=== PATIENT | male | born 1945 | race African-American/Black ===

== ENCOUNTER 2016-05-16 13:36 | Inpatient (IN) | payer OTHER, MEDICARE ==
[~2016-05-16] VITALS: Ht 188 cm; Wt 67.3 kg
[2016-05-16] VITALS (15 sets, daily range): BP systolic 74–136; BP diastolic 39–80; PULSE 65–96; RESP 16–20; TEMP 97.6–99; O2SAT 94–100
[~2016-05-16 13:36] MED LIST: APIX5TAB PO; CORD200T PO; chemotherapy IV
[2016-05-16] MEDS ORDERED: ADENOSINE IV SOLN 3 MG/ML 2 ML VIAL ONE (14:08)
[2016-05-16] MEDS ORDERED: SODIUM CHLOR 0.9% 1000 ML INJ 1,000 ML IV SCH (14:21)
[2016-05-16 14:22] LABS: MEAN CORPUSCULAR HGB CONC 29.4 % (32.0-36.0)
[2016-05-16] MEDS ORDERED: SODIUM CHLORIDE 0.9% FLUSH 5 ML FLUSH IVF PRN (14:30)
[2016-05-16] MEDS ORDERED: AMIO200T PO (14:54)
--- NOTE | 2016-05-16 15:11 | RADRPT ---
EXAM DATE/TIME: 05/16/2016 14:45 [facility] COMPARISON: CT BRAIN W/O CONTRAST, December 27, 2015, 10:59. INDICATIONS : Generalized weakness. RADIATION DOSE: 56.35 CTDIvol (mGy) MEDICAL HISTORY : Cardiovascular disease. Hypertension. Renal cancer SURGICAL HISTORY : Nephrectomy, left. ENCOUNTER: Initial ACUITY: 1 day PAIN SCALE: 0/10 LOCATION: cranial TECHNIQUE: Multiple contiguous axial images were obtained of the head. Using automated exposure control and adj ustment of the mA and/or kV according to patient size, radiation dose was kept as low as reasonably a chievable to obtain optimal diagnostic quality images. FINDINGS: There is marked central and cortical atrophy with dilatation of ventricular and sulcal spaces. There is no parenchymal hemorrhage, acute infarction or mass lesion identified. There are no extra-axial fluid collections appreciated. The posterior fossa is unremarkable with midline fourth ventricle. T he portion of the orbits and paranasal sinuses visualized are unremarkable. CONCLUSION: Stable examination. Antione Coy MD on May 16, 2016 at 15:09 Board Certified Radiologist. This report was verified electronically.
--- NOTE | 2016-05-16 15:12 | RADRPT ---
EXAM DATE/TIME: 05/16/2016 14:35 [facility] COMPARISON: No previous studies available for comparison. INDICATIONS : Shortness of breath. MEDICAL HISTORY : Congestive heart failure. Hypertension. Metastatic, lung. Left renal cancer. SURGICAL HISTORY : Nephrectomy, left. ENCOUNTER: Initial ACUITY: 1 day PAIN SCORE: 0/10 LOCATION: chest FINDINGS: A single view of the chest demonstrates there are numerable pulmonary nodules scattered throughout th e lungs, right worse than left. Heart and mediastinum are unremarkable. Bones are unremarkable CONCLUSION: Innumerable pulmonary nodules right greater than left, unchanged. Antione Coy MD on May 16, 2016 at 15:08 Board Certified Radiologist. This report was verified electronically.
[2016-05-16 15:58] LABS: AUTOMATED NEUTROPHIL # 3.9 TH/MM3 (1.8-7.7); BASOPHIL % 0.4 % (0.0-2.0); LYMPH % 24.4 % (9.0-44.0); LYMPHOCYTE # 1.5 TH/MM3 (1.0-4.8); MEAN CELL VOLUME 82.1 FL (80.0-100.0); MEAN CORPUSCULAR HEMOGLOBIN 24.2 PG (27.0-34.0); MONO % 9.6 % (0.0-8.0); NEUT % 65.6 % (16.0-70.0); PLATELET COUNT 341 TH/MM3 (150-450); RED BLOOD COUNT 2.13 MIL/MM3 (4.50-5.90); RED CELL DISTRIBUTION WIDTH 18.2 % (11.6-17.2)
[2016-05-16 16:01] LABS: APTT (PATIENT) 30.1 SEC (24.3-30.1); INTERNATIONAL NORMALIZED RATIO 1.3 RATIO; PROTHROMBIN TIME - PATIENT 14.1 SEC (9.8-11.6)
[2016-05-16 16:06] LABS: ALT (GPT) 12 U/L (12-78); ANION GAP 9 MEQ/L (5-15); AST (GOT) 16 U/L (15-37); BICARBONATE 24.5 MEQ/L (21.0-32.0); BLOOD UREA NITROGEN 29 MG/DL (7-18); CHLORIDE 112 MEQ/L (98-107); GLOMERULAR FILTRATION RATE 129 ML/MIN (>89); POTASSIUM 3.2 MEQ/L (3.5-5.1); SODIUM (NA) 145 MEQ/L (136-145)
[2016-05-16 16:09] LABS: ALKALINE PHOSPHATASE 107 U/L (45-117); TOTAL BILIRUBIN ADULT 0.3 MG/DL (0.2-1.0)
[2016-05-16 16:10] LABS: HEMATOCRIT 17.5 % (39.0-51.0); HEMO FLAGS AUTO DIFF
[2016-05-16 16:13] LABS: CREATINE KINASE 46 U/L (39-308)
[2016-05-16] MEDS ORDERED: SODIUM CHLOR 0.9% 250 ML INJ 250 ML IV ONE (16:30)
[2016-05-16] MEDS ORDERED: ONDANSETRON HCL 4 MG/2 ML VIAL IV ONE (16:30)
[2016-05-16] MEDS ORDERED: SODIUM CHLORIDE 0.9% FLUSH 5 ML FLUSH IV FLUSH PRN (16:45)
[2016-05-16] MEDS ORDERED: MISCELLANEOUS NURSING INFORMATION XX SCH (16:45)
[2016-05-16] MEDS ORDERED: CHLORHEXIDINE GLUCONATE 2 % 1 PACK (2 CLOTHS) TOP PRN (16:45)
[2016-05-16] MEDS ORDERED: RESP: ALBUTEROL 2.5 MG/IPRATROPIUM 0.5 MG NEB (PRN) INH (16:45)
[2016-05-16] MEDS ORDERED: ONDANSETRON HCL 4 MG/2 ML VIAL IV PRN (16:45)
[2016-05-16 16:49] LABS: OVALOCYTES 2+ (NORMAL); PLATELET ESTIMATE SMEAR NORMAL (NORMAL); PLATELET MORPHOLOGY NORMAL (NORMAL); SCAN/DIFF AUTO DIFF CONFIRMED; TEARDROP RBCS 1+ (NORMAL)
[2016-05-16] MEDS ORDERED: PROTHROMBIN COMPLEX CONC INJ 3,000 UNITS in SYRINGE/BAG 1 EA IV ONE (17:00)
--- NOTE | 2016-05-16 17:16 | PD ---
HPI Chief Complaint: GI Complaint Time Seen by Provider: 14:21 Travel History International Travel<30 days: No Contact w/Intl Traveler<30days: No Traveled to known affect area: No History of Present Illness HPI This is a 71-year-old male who presents to the emergency department with a history of metastatic renal cell carcinoma who reportedly noticed some bright red blood from his rectum several days ago. Last night he was so weak he fell next to his bed and he wasn't able to get up until this morning. He says he feels generally weak, fatigued, and has difficulty exerting himself. He denies any pain. As far as his cancer he understands that he has terminal cancer. He wants to be aggressive regarding his anemia and he wants to try to feel better but he would not want CPR or intubation in the hospital, and would not want excessive measures if he were to in the hospital. He agrees his goals are consistent with a DO NOT RESUSCITATE order. PFSH Past Medical History Hx Anticoagulant Therapy: Yes (BLOOD THINNER) Anemia: Yes Arthritis: No Asthma: No Autoimmune Disease: No Anxiety: No Depression: No Heart Rhythm Problems: Yes (afib) Cancer: Yes (left kidney with mets to the lungs) Cardiovascular Problems: Yes High Cholesterol: No Chemotherapy: Yes Chest Pain: Yes Congestive Heart Failure: Yes Diabetes: No Diminished Hearing: No Endocrine: No Genitourinary: Yes (hematuria, left kidney mass.) Hypertension: Yes (not on any meds) Immune Disorder: No Implanted Vascular Access Dvce: Yes Kidney Stones: No Musculoskeletal: No Neurologic: No Psychiatric: No Reproductive: No Respiratory: Yes Myocardial Infarction: No Radiation Therapy: No Renal Failure: No Seizures: No Sickle Cell Disease: No Sleep Apnea: No Thyroid Disease: No Past Surgical History Abdominal Surgery: No Cardiac Surgery: No Ear Surgery: No Endocrine Surgery: No Eye Surgery: No Genitourinary Surgery: Yes (URETHRAL SX 1970'S, POOR HISTORIAN POSSIBLE STENT FOR COLLAPSED URETHRA) Gynecologic Surgery: No Oral Surgery: No Thoracic Surgery: No Other Surgery: Yes (left kidney removed r/t cancer 06/2015) Social History Alcohol Use: No (denies current use) Tobacco Use: No (quit 1 year ago smoked cigs) Substance Use: No (+ hx, denies today) Allergies-Medications (Allergen,Severity, Reaction): Coded Allergies: No Known Allergies (Verified , 05/16/16) Reported Meds & Prescriptions Reported Meds & Active Scripts Active Reported Amiodarone (Amiodarone HCl) 200 Mg Tab 200 Mg PO DAILY Eliquis (Apixaban) 5 Mg Tab 5 Mg PO DAILY Review of Systems Except as stated in HPI: all other systems reviewed are Neg Physical Exam Narrative GENERAL: Cachectic, chronically ill-appearing SKIN: Pale HEAD: Atraumatic. Normocephalic. EYES: Pupils equal and round. No injection or drainage. ENT: Dry mucous membranes NECK: Trachea midline. CARDIOVASCULAR: Regular rate and rhythm. No murmur appreciated. RESPIRATORY: Clear to auscultation. Breath sounds equal bilaterally. GASTROINTESTINAL: Abdomen soft, non-tender, nondistended. MUSCULOSKELETAL: No obvious deformities. NEUROLOGICAL: Awake and alert. No obvious cranial nerve deficits. Moving all extremities. PSYCHIATRIC: Appropriate mood and affect; insight and judgment normal. Data Data Last Documented VS Vital Signs Date Time Temp Pulse Resp B/P Pulse Ox O2 Delivery O2 Flow Rate FiO2 05/16/16 14:23 19 05/16/16 14:23 97 Room Air 05/16/16 14:11 97.6 80 85/50 Orders Adenosine Inj (Adenocard Inj) (05/16/16 14:08) Complete Blood Count With Diff (05/16/16 14:21) Comprehensive Metabolic Panel (05/16/16 14:21) Prothrombin Time / Inr (Pt) (05/16/16 14:21) Act Partial Throm Time (Ptt) (05/16/16 14:21) Urinalysis - C+S If Indicated (05/16/16 14:21) Cath For Specimen (05/16/16 14:21) Ecg Monitoring (05/16/16 14:21) Iv Access Insert/Monitor (05/16/16 14:21) Oximetry (05/16/16 14:21) Sodium Chlor 0.9% 1000 Ml Inj (Ns 1000 M (05/16/16 14:21) Sodium Chloride 0.9% Flush (Ns Flush) (05/16/16 14:30) Troponin I (05/16/16 14:21) Creatine Kinase (Cpk) (05/16/16 14:21) Chest, Single Ap (05/16/16 ) Type And Screen (05/16/16 14:22) Ct Brain W/O Iv Contrast(Rout) (05/16/16 ) Red Blood Cells (Rbc) (05/16/16 16:18) Sodium Chlor 0.9% 250 Ml Inj (Ns 250 Ml (05/16/16 16:30) Pantoprazole Inj (Protonix Inj) (05/16/16 17:30) Pantoprazole Inj (Protonix Inj) (05/16/16 17:30) Ondansetron Inj (Zofran Inj) (05/16/16 16:30) Red Blood Cells (Rbc) (05/16/16 16:27) Code Status (05/16/16 16:34) Prothrombin Complex Conc Inj (Kcentra In (05/16/16 17:00) Admit Order (Ed Use Only) (05/16/16 16:40) Labs Laboratory Tests Test 05/16/16 05/16/16 05/16/16 05/16/16 15:05 16:18 16:27 16:41 White Blood Count 6.0 TH/MM3 Red Blood Count 2.13 MIL/MM3 Hemoglobin 5.2 GM/DL Hematocrit 17.5 % Mean Corpuscular Volume 82.1 FL Mean Corpuscular Hemoglobin 24.2 PG Mean Corpuscular Hemoglobin 29.4 % Concent Red Cell Distribution Width 18.2 % Platelet Count 341 TH/MM3 Mean Platelet Volume 8.0 FL Neutrophils (%) (Auto) 65.6 % Lymphocytes (%) (Auto) 24.4 % Monocytes (%) (Auto) 9.6 % Eosinophils (%) (Auto) 0.0 % Basophils (%) (Auto) 0.4 % Neutrophils # (Auto) 3.9 TH/MM3 Lymphocytes # (Auto) 1.5 TH/MM3 Monocytes # (Auto) 0.6 TH/MM3 Eosinophils # (Auto) 0.0 TH/MM3 Basophils # (Auto) 0.0 TH/MM3 CBC Comment AUTO DIFF Differential Comment AUTO DIFF CONFIRMED Platelet Estimate NORMAL Platelet Morphology Comment NORMAL Tear Drop Cells 1+ Ovalocytes 2+ Prothrombin Time 14.1 SEC Prothromb Time International 1.3 RATIO Ratio Activated Partial 30.1 SEC Thromboplast Time Sodium Level 145 MEQ/L Potassium Level 3.2 MEQ/L Chloride Level 112 MEQ/L Carbon Dioxide Level 24.5 MEQ/L Anion Gap 9 MEQ/L Blood Urea Nitrogen 29 MG/DL Creatinine 0.73 MG/DL Estimat Glomerular Filtration 129 ML/MIN Rate Random Glucose 108 MG/DL Calcium Level 8.4 MG/DL Total Bilirubin 0.3 MG/DL Aspartate Amino Transf 16 U/L (AST/SGOT) Alanine Aminotransferase 12 U/L (ALT/SGPT) Alkaline Phosphatase 107 U/L Total Creatine Kinase 46 U/L Troponin I 0.02 NG/ML Total Protein 5.8 GM/DL Albumin 1.1 GM/DL Blood Type O POSITIVE Antibody Screen NEGATIVE Crossmatch Leukocyte-Reduced Leukocyte-Reduced Leukocyte-Reduced Red Blood Red Blood Red Blood Cells Cells Cells Blood Bank Comment MDM Medical Decision Making Medical Screen Exam Complete: Yes Emergency Medical Condition: Yes Interpretation(s) EKG: Normal sinus rhythm, frequent PVCs and PACs Afebrile, no tachycardia, hypotension Anemia Hypokalemia troponin .02 hypoalbuminemia Differential Diagnosis GI bleed, dehydration, rhabdomyolysis, sepsis Narrative Course This is a 71-year-old male who has a history of metastatic renal cell carcinoma who presents to the emergency department having fallen and been very weak in the setting of rectal bleeding. On all of this. He was placed in a monitor and an IV was established. Labs are obtained which demonstrated hemoglobin of 5.2. He was given 2 units of blood and k-centra. A third unit was ordered. Patient also is an SVT on arrival in the 220s which resolved on its own. I did discuss CODE STATUS with the patient and he elected to be DNR/DNI and would not want resuscitation if he were to naturally in the hospital however he does want aggressive measures to try to address his GI bleeding. Critical Care Narrative Aggregate critical care time was 50 minutes. Time to perform other separately billable procedures was not included in the critical care time. My time did not include minutes spent treating any other patients simultaneously or on activities that did not directly contribute to the patient's treatment. The services I provided to this patient were to treat and/or prevent clinically significant deterioration that could result in: Disability, I provided critical care services requiring my management, as noted below: Chart data review, documentation time, medication orders and management, vital sign assessments/reviewing monitor data, ordering and reviewing lab tests, ordering and interpreting/reviewing x-rays and diagnostic studies, care of the patient and discussion of the patient with the admitting physicians. Physician Communication Physician Communication Discussed with Dr. Andres Diagnosis Primary Impression: GI bleed Qualified Code: K92.2 - Gastrointestinal hemorrhage, unspecified gastrointestinal hemorrhage type Additional Impression: SVT (supraventricular tachycardia) Admitting Information Admitting Physician Requests: Admit Blanca Youssef MD May 16, 2016 17:16
[2016-05-16] MEDS ORDERED: PANTOPRAZOLE INJ 80 MG in SODIUM CHLORIDE 0.9% INJ 35 ML IV ONE (17:30)
--- NOTE | 2016-05-16 17:38 | HHI.HP ---
[facility] Service Critical Care Medicine Primary Care Physician Wayne Willams MD Admission Diagnosis gi bleed Diagnosis: Chief Complaint: Rectal bleeding Travel History International Travel<30 Days: No Contact w/Intl Traveler <30 Da: No Traveled to Known Affected Are: No History of Present Illness This is a 71-year-old male who presents to the emergency department with a history of metastatic renal cell carcinoma who reportedly noticed some bright red blood from his rectum several days ago. Last night he was so weak he fell next to his bed and he wasn't able to get up until this morning. He says he feels generally weak, fatigued, and has difficulty exerting himself. He denies any pain. As far as his cancer he understands that he has terminal cancer. He wants to be aggressive regarding his anemia and he wants to try to feel better but he would not want CPR or intubation in the hospital, and would not want excessive measures if he were to in the hospital. He agrees his goals are consistent with a DO NOT RESUSCITATE order. Patient was in SVT on arrival in the ER however converted spontaneously to sinus rhythm. 3 units PRBCs ordered by ER physician and he is to receive Kcentra as he is on Eliquis for anticoagulation. History PFSH Past Medical History Hx Anticoagulant Therapy: Yes (BLOOD THINNER- Eliquis) Anemia: Yes Arthritis: No Asthma: No Autoimmune Disease: No Anxiety: No Depression: No Heart Rhythm Problems: Yes (afib) Cancer: Yes (left kidney with mets to the lungs) Cardiovascular Problems: Yes High Cholesterol: No Chemotherapy: Yes Chest Pain: Yes Congestive Heart Failure: Yes Diabetes: No Diminished Hearing: No Endocrine: No Genitourinary: Yes (hematuria, left kidney mass.) Hypertension: Yes (not on any meds) Immune Disorder: No Implanted Vascular Access Dvce: Yes Kidney Stones: No Musculoskeletal: No Neurologic: No Psychiatric: No Reproductive: No Respiratory: Yes Myocardial Infarction: No Radiation Therapy: No Renal Failure: No Seizures: No Sickle Cell Disease: No Sleep Apnea: No Thyroid Disease: No Past Surgical History Abdominal Surgery: No Cardiac Surgery: No Ear Surgery: No Endocrine Surgery: No Eye Surgery: No Genitourinary Surgery: Yes (URETHRAL SX 1969', POOR HISTORIAN POSSIBLE STENT FOR COLLAPSED URETHRA) Gynecologic Surgery: No Oral Surgery: No Thoracic Surgery: No Other Surgery: Yes (left kidney removed r/t cancer 06/2015) Social History Alcohol Use: No (denies current use) Tobacco Use: No (quit 1 year ago smoked cigs) Substance Use: No (+ hx, denies today) Allergies-Medications Allergies-Medications (Allergen,Severity, Reaction): Coded Allergies: No Known Allergies (Verified , 05/16/16) Reported Meds & Prescriptions Reported Meds & Active Scripts Active Reported Amiodarone (Amiodarone HCl) 200 Mg Tab 200 Mg PO DAILY Eliquis (Apixaban) 5 Mg Tab 5 Mg PO DAILY ROS Review of Systems Except as stated in HPI: all other systems reviewed are Neg Physical Exam Vital Signs Vital Signs Date Time Temp Pulse Resp B/P Pulse Ox O2 Delivery O2 Flow Rate FiO2 05/16/16 17:05 95 18 82/52 97 Room Air 05/16/16 14:23 19 05/16/16 14:23 19 97 Room Air 05/16/16 14:11 97.6 80 19 85/50 95 Physical Exam Narrative GENERAL: Cachectic, chronically ill-appearing SKIN: Pale HEAD: Atraumatic. Normocephalic. EYES: Pupils equal and round. No injection or drainage. Pallor present, no icterus ENT: Dry mucous membranes NECK: Trachea midline. CARDIOVASCULAR: Regular rate and rhythm. No murmur appreciated. RESPIRATORY: Clear to auscultation. Breath sounds equal bilaterally. GASTROINTESTINAL: Abdomen soft, non-tender, nondistended. MUSCULOSKELETAL: No obvious deformities. NEUROLOGICAL: Awake and alert. No obvious cranial nerve deficits. Moving all extremities. PSYCHIATRIC: Appropriate mood and affect; insight and judgment normal. Laboratory Laboratory Tests Test 05/16/16 05/16/16 05/16/16 05/16/16 15:05 16:18 16:27 16:41 White Blood Count 6.0 Red Blood Count 2.13 Hemoglobin 5.2 Hematocrit 17.5 Mean Corpuscular Volume 82.1 Mean Corpuscular Hemoglobin 24.2 Mean Corpuscular Hemoglobin 29.4 Concent Red Cell Distribution Width 18.2 Platelet Count 341 Mean Platelet Volume 8.0 Neutrophils (%) (Auto) 65.6 Lymphocytes (%) (Auto) 24.4 Monocytes (%) (Auto) 9.6 Eosinophils (%) (Auto) 0.0 Basophils (%) (Auto) 0.4 Neutrophils # (Auto) 3.9 Lymphocytes # (Auto) 1.5 Monocytes # (Auto) 0.6 Eosinophils # (Auto) 0.0 Basophils # (Auto) 0.0 CBC Comment AUTO DIFF Differential Comment AUTO DIFF CONFIRMED Platelet Estimate NORMAL Platelet Morphology Comment NORMAL Tear Drop Cells 1+ Ovalocytes 2+ Prothrombin Time 14.1 Prothromb Time International 1.3 Ratio Activated Partial 30.1 Thromboplast Time Sodium Level 145 Potassium Level 3.2 Chloride Level 112 Carbon Dioxide Level 24.5 Anion Gap 9 Blood Urea Nitrogen 29 Creatinine 0.73 Estimat Glomerular Filtration 129 Rate Random Glucose 108 Calcium Level 8.4 Total Bilirubin 0.3 Aspartate Amino Transf 16 (AST/SGOT) Alanine Aminotransferase 12 (ALT/SGPT) Alkaline Phosphatase 107 Total Creatine Kinase 46 Troponin I 0.02 Total Protein 5.8 Albumin 1.1 Blood Type O POSITIVE Antibody Screen NEGATIVE Crossmatch Leukocyte-Reduced Leukocyte-Reduced Leukocyte-Reduced Red Blood Red Blood Red Blood Cells Cells Cells Blood Bank Comment Result Diagram: 05/16/16 1505 05/16/16 1505 Imaging Last Impressions Head CT 05/16/16 0000 Signed Impressions: Service Date/Time: May 14:45 - CONCLUSION: Stable examination. Antione Coy MD Chest X-Ray 05/16/16 0000 Signed Impressions: Service Date/Time: May 14:35 - CONCLUSION: Innumerable pulmonary nodules right greater than left, unchanged. Antione Coy MD Assessment and Plan Assessment and Plan 71-year-old male with: Rectal bleeding Hemorrhagic shock Acute blood loss anemia SVT (converted to sinus tachycardia spontaneously) Metastatic renal cancer with numerous pulmonary metastasis status post palliative chemotherapy Failure to thrive Protein calorie malnutrition Plan: Neuro: Follow neuro status. Pain medications as needed. Cardiovascular: Aggressive fluid resuscitation. Patient has received 2 L normal saline bolus. 3 units PRBCs ordered stat. Will consider pressors if hypotension persists following 3 units PRBC transfusions. Patient was in SVT on arrival to the ER and converted spontaneously. Pulmonary: Supplemental O2, bronchodilators as needed. GI/liver: Nothing by mouth for now. GI consult requested for rectal bleeding. Follow serial H&H. Renal/: IV hydration, strict intake output, monitor and replete electrolytes, follow BUN creatinine. Hemeonc: Patient was on Eliquis. Receiving Kcentra for reversal. Follow serial H&H following transfusions. We will give calcium chloride 2 g IV piggyback for anticipated hypocalcemia following multiple transfusions. Consulted Dr. Miki Gray his oncologist in view of metastatic renal cell cancer who appears to be failing palliative chemotherapy. ID: No antibiotics at this time. Endocrine: Watch for hyperglycemia, SSI for glycemic control if needed. We will initiate hydrocortisone 50 mg IV every 6 hourly to cover for adrenal insufficiency. Prophylaxis: PPI/SCDs Patient has elected to be DNR status however wishes to continue other aggressive measures including blood transfusions. GI consult requested for further evaluation. Consult palliative care to assist with deciding goals of therapy. Prognosis appears extremely poor in view of metastatic renal cell cancer. Condition critical: Time spent on critical care excluding procedures 45 minutes. Bjorn Andres MD May 16, 2016 17:38
[2016-05-16] MEDS ORDERED: CALCIUM GLUCONATE INJ 2 GM in DEXTROSE 5% IN WATER 100ML INJ 100 ML IV STA ×2 (17:39)
[2016-05-16] MEDS ORDERED: NOREPINEPHRINE 4 MG/4 ML AMP ONE (19:39)
[2016-05-16] MEDS ORDERED: TERBUTALINE INJ 1 MG/ML AMP SQ PRN (19:45)
[2016-05-16 19:54] LABS: HEMATOCRIT 24.2 % (39.0-51.0); REVIEW FLAG FINAL
[2016-05-16] MEDS ORDERED: MORPHINE SULFATE 8 MG/ML INJ ONE (20:46)
[2016-05-16] MEDS: SODIUM CHLORIDE 0.9% FLUSH 5 ML FLUSH IV FLUSH SCH (21:00)
--- NOTE | 2016-05-16 21:09 | PD.PROCEDR ---
Central Line Procedure REASON FOR PROCEDURE Central venous access PROCEDURE PERFORMED Central line placement: LIJ US guided CONSENT Informed consent for procedure was obtained and time out performed. The risks and benefits of the procedure were discussed to include but limited to bleeding , clot formation, infection, and even . ANESTHESIA Local injection of 1% Lidocaine DESCRIPTION OF THE PROCEDURE The patient was placed in supine, mild Trendelenburg position. The area was exposed and cleansed with ChloraPrep, times two. Large sterile drape was used to cover the patient, with the site exposed, under sterile conditions including cap, face mask, sterile gown, and sterile gloves. On single attempt, the introducer needle was inserted with negative pressure in syringe and venous flash was obtained. The guide wire was then advanced without any restriction and the needle was removed. The dilator was used without any complications. Using Seldinger technique the 20 CM triple lumen 7F catheter was advanced over the guide wire to a depth of 18 centimeters. The guide wire was removed. All ports were aspirated with dark venous blood return and flushed easily with sterile saline. All ports were capped. Antibiotic disc was placed around central line at puncture site. The central line was secured to the skin with two interrupted 2.0 silk sutures. The area was bandaged with sterile see- through central line bandage. RADIOLOGICAL DATA Ultrasound guidance was used to locate LIJ. Doppler/color flow was used to confirm venous flow. COMPLICATIONS: No apparent complications ESTIMATED BLOOD LOSS: Less than 1 cc. Gilberto Black MD May 16, 2016 21:09
[2016-05-16] MEDS ORDERED: ALBUMIN HUMAN 25% 25 GM/100 ML BAGP IV ONE (21:15)
--- NOTE | 2016-05-16 22:04 | RADRPT ---
EXAM DATE/TIME: 05/16/2016 21:25 [facility] COMPARISON: CHEST SINGLE AP, May 16, 2016, 14:35. INDICATIONS : Central line placement. MEDICAL HISTORY : None. SURGICAL HISTORY : None. ENCOUNTER: Initial ACUITY: 1 day PAIN SCORE: 0/10 LOCATION: Bilateral chest FINDINGS: Multiple lung nodules are again seen not significantly changed. Left IJ line is present with tip over lapping the expected region of the SVC. No definite pneumothorax is seen for technique. Probable skin folds are identified overlapping the left chest laterally. CONCLUSION: Line in place and no pneumothorax. Cat Hwang MD on May 16, 2016 at 22:02 Board Certified Radiologist. This report was verified electronically.
[2016-05-16] MEDS: CHLORHEXIDINE GLUCONATE 2 % 1 PACK (2 CLOTHS) TOP SCH (22:05)
[2016-05-16] MEDS: NOREPINEPHRINE-DEXTROSE DRIP 250 ML IV SCH ×2 (22:05→22:43)
[2016-05-17] VITALS (19 sets, daily range): BP systolic 86–121; BP diastolic 57–82; PULSE 59–92; RESP 14–18; TEMP 97.5–98.6; O2SAT 94–99
[2016-05-17] MEDS: SODIUM CHLORIDE 0.9% FLUSH 5 ML FLUSH IV FLUSH SCH ×2 (00:33→00:34)
[2016-05-17] MEDS ORDERED: POTASSIUM PHOSPHATE MONOBASIC 500 MG TAB PO PRN (00:45)
[2016-05-17] MEDS ORDERED: POTASSIUM CHLOR 20 MEQ PREMIX 100 ML IV PRN ×2 (00:45)
[2016-05-17] MEDS ORDERED: POTASSIUM PHOSPHATE MONOBASIC 500 MG TAB PO/TUBE PRN (00:45)
[2016-05-17] MEDS ORDERED: POTASSIUM PHOSPHATE INJ 30 MMOL in SODIUM CHLOR 0.9% 250 ML INJ 250 ML IV PRN (00:45)
[2016-05-17] MEDS ORDERED: MAGNESIUM SULFATE INJ 4 GM in SODIUM CHLORIDE 0.9% INJ 92 ML IV PRN (00:45)
[2016-05-17] MEDS ORDERED: POTASSIUM CL 40 MEQ/30 ML LIQ UDC PO/TUBE PRN ×2 (00:45)
[2016-05-17] MEDS ORDERED: MAGNESIUM OXIDE 400 MG TAB PO PRN (00:45)
[2016-05-17] MEDS ORDERED: POTASSIUM CHLOR 40 MEQ PREMIX 100 ML IV PRN (00:45)
[2016-05-17] MEDS ORDERED: MAGNESIUM SULFATE INJ 2 GM in SODIUM CHLORIDE 0.9% INJ 96 ML IV PRN (00:45)
[2016-05-17] MEDS ORDERED: SODIUM PHOSPHATE INJ 30 MMOL in SODIUM CHLOR 0.9% 250 ML INJ 240 ML IV PRN (00:45)
[2016-05-17 00:51] LABS: HEMATOCRIT 25.6 % (39.0-51.0); REVIEW FLAG FINAL
[2016-05-17] MEDS: POTASSIUM CHLOR 40 MEQ PREMIX 100 ML IV PRN ×2 (01:06→02:19)
[2016-05-17] MEDS: PANTOPRAZOLE INJ 80 MG in SODIUM CHLORIDE 0.9% INJ 100 ML IV SCH ×4 (02:07→21:17)
[2016-05-17] MEDS: MORPHINE SULFATE 4 MG/ML INJ IV PUSH PRN ×2 (03:04→21:18)
[2016-05-17 04:18] LABS: APTT (PATIENT) 35.4 SEC (24.3-30.1); INTERNATIONAL NORMALIZED RATIO 1.1 RATIO; PROTHROMBIN TIME - PATIENT 12.5 SEC (9.8-11.6)
[2016-05-17 04:19] LABS: AUTOMATED NEUTROPHIL # 11.2 TH/MM3 (1.8-7.7); BASOPHIL % 0.1 % (0.0-2.0); HEMATOCRIT 26.5 % (39.0-51.0); HEMO FLAGS DIFF FINAL; LYMPH % 10.8 % (9.0-44.0); LYMPHOCYTE # 1.5 TH/MM3 (1.0-4.8); MEAN CELL VOLUME 81.7 FL (80.0-100.0); MEAN CORPUSCULAR HEMOGLOBIN 26.7 PG (27.0-34.0); MEAN CORPUSCULAR HGB CONC 32.7 % (32.0-36.0); MONO % 7.2 % (0.0-8.0); NEUT % 81.9 % (16.0-70.0); PLATELET COUNT 286 TH/MM3 (150-450); RED BLOOD COUNT 3.25 MIL/MM3 (4.50-5.90); RED CELL DISTRIBUTION WIDTH 16.3 % (11.6-17.2); WHITE BLOOD COUNT 13.6 TH/MM3 (4.0-11.0)
[2016-05-17 04:32] LABS: ALT (GPT) 11 U/L (12-78); ANION GAP 7 MEQ/L (5-15); AST (GOT) 9 U/L (15-37); BICARBONATE 23.8 MEQ/L (21.0-32.0); BLOOD UREA NITROGEN 31 MG/DL (7-18); CHLORIDE 116 MEQ/L (98-107); GLOMERULAR FILTRATION RATE 135 ML/MIN (>89); MAGNESIUM 1.8 MG/DL (1.5-2.5); SODIUM (NA) 147 MEQ/L (136-145)
[2016-05-17 04:33] LABS: ALKALINE PHOSPHATASE 82 U/L (45-117); TOTAL BILIRUBIN ADULT 1.3 MG/DL (0.2-1.0)
[2016-05-17] MEDS: NOREPINEPHRINE-DEXTROSE DRIP 250 ML IV SCH ×3 (05:53→21:18)
[2016-05-17 07:52] LABS: BACTERIA, URINE MOD /hpf; BLOOD, URINE SMALL (NEG); COMMENT (UR) CULTURE INDICATED; CULTURE IF INDICATED CULTURE INDICATED; GLUCOSE,URINE NEG (NEG); HYALINE CAST, URINE 1 /lpf (RARE); KETONE, URINE NEG (NEG); MUCUS URINE FEW /lpf (OCC); NITRITE,URINE NEG (NEG); SQUAMOUS EPITHELIAL CELL URINE <1 /hpf (0-5); URINE COLOR YELLOW (YELLW/STRAW)
[2016-05-17] MEDS: SODIUM CHLOR 0.9% 1000 ML INJ 1,000 ML IV SCH ×2 (08:18→13:38)
[2016-05-17 08:50] LABS: HEMATOCRIT 25.1 % (39.0-51.0); REVIEW FLAG FINAL
--- NOTE | 2016-05-17 10:14 | HHI.CCPN ---
Subjective Remarks/Hospital Course This is a 71-year-old male who presents to the emergency department with a history of metastatic renal cell carcinoma who reportedly noticed some bright red blood from his rectum several days ago. Last night he was so weak he fell next to his bed and he wasn't able to get up until this morning. He says he feels generally weak, fatigued, and has difficulty exerting himself. He denies any pain. As far as his cancer he understands that he has terminal cancer. He wants to be aggressive regarding his anemia and he wants to try to feel better but he would not want CPR or intubation in the hospital, and would not want excessive measures if he were to in the hospital. He agrees his goals are consistent with a DO NOT RESUSCITATE order. Patient was in SVT on arrival in the ER however converted spontaneously to sinus rhythm. 3 units PRBCs ordered by ER physician and he is to receive Kcentra as he is on Eliquis for anticoagulation. 05/17 Patient is lying in bed in NAD. s/p transfusion 4u PRBC since arrival. Hgb 8.3 this morning. On Levophed 11 mics BP 107/59. On Protonix drip. Objective Vital Signs Date Time Temp Pulse Resp B/P Pulse Ox O2 Delivery O2 Flow Rate FiO2 05/17/16 10:00 76 05/17/16 08:00 98.1 16 107/63 97 05/16/16 19:43 Nasal Cannula 2 Intake and Output 05/16/16 05/16/16 05/17/16 08:00 16:00 00:00 Intake Total 4276 ml Output Total 100 ml Balance 4176 ml Result Diagram: 05/17/16 0830 05/17/16 0351 Other Results Laboratory Tests Test 05/16/16 05/16/16 05/16/16 05/16/16 15:05 16:18 16:27 16:41 Prothrombin Time 14.1 SEC Prothromb Time International 1.3 RATIO Ratio Activated Partial 30.1 SEC Thromboplast Time Sodium Level 145 MEQ/L Potassium Level 3.2 MEQ/L Chloride Level 112 MEQ/L Carbon Dioxide Level 24.5 MEQ/L Anion Gap 9 MEQ/L Blood Urea Nitrogen 29 MG/DL Creatinine 0.73 MG/DL Estimat Glomerular Filtration 129 ML/MIN Rate Random Glucose 108 MG/DL Calcium Level 8.4 MG/DL Total Bilirubin 0.3 MG/DL Aspartate Amino Transf 16 U/L (AST/SGOT) Alanine Aminotransferase 12 U/L (ALT/SGPT) Alkaline Phosphatase 107 U/L Total Creatine Kinase 46 U/L Troponin I 0.02 NG/ML Total Protein 5.8 GM/DL Albumin 1.1 GM/DL Blood Type O POSITIVE Antibody Screen NEGATIVE White Blood Count 6.0 TH/MM3 Red Blood Count 2.13 MIL/MM3 Hemoglobin 5.2 GM/DL Hematocrit 17.5 % Mean Corpuscular Volume 82.1 FL Mean Corpuscular Hemoglobin 24.2 PG Mean Corpuscular Hemoglobin 29.4 % Concent Red Cell Distribution Width 18.2 % Platelet Count 341 TH/MM3 Mean Platelet Volume 8.0 FL Neutrophils (%) (Auto) 65.6 % Lymphocytes (%) (Auto) 24.4 % Monocytes (%) (Auto) 9.6 % Eosinophils (%) (Auto) 0.0 % Basophils (%) (Auto) 0.4 % Neutrophils # (Auto) 3.9 TH/MM3 Lymphocytes # (Auto) 1.5 TH/MM3 Monocytes # (Auto) 0.6 TH/MM3 Eosinophils # (Auto) 0.0 TH/MM3 Basophils # (Auto) 0.0 TH/MM3 CBC Comment AUTO DIFF Differential Comment AUTO DIFF CONFIRMED Platelet Estimate NORMAL Platelet Morphology Comment NORMAL Tear Drop Cells 1+ Ovalocytes 2+ Crossmatch Leukocyte-Reduced Leukocyte-Reduced Leukocyte-Reduced Red Blood Red Blood Red Blood Cells Cells Cells Blood Bank Comment Test 05/16/16 05/16/16 05/16/16 05/17/16 19:25 20:08 21:11 00:25 Hemoglobin 7.7 GM/DL 8.6 GM/DL Hematocrit 24.2 % 25.6 % Platelet Count 283 TH/MM3 Lactic Acid Level 2.4 mmol/L Nasal Screen MRSA (PCR) NEGATIVE Random Cortisol 146.7 MCG/DL Test 05/17/16 05/17/16 05/17/16 03:51 05:55 08:30 White Blood Count 13.6 TH/MM3 Red Blood Count 3.25 MIL/MM3 Hemoglobin 8.7 GM/DL 8.3 GM/DL Hematocrit 26.5 % 25.1 % Mean Corpuscular Volume 81.7 FL Mean Corpuscular Hemoglobin 26.7 PG Mean Corpuscular Hemoglobin 32.7 % Concent Red Cell Distribution Width 16.3 % Platelet Count 286 TH/MM3 Mean Platelet Volume 7.3 FL Neutrophils (%) (Auto) 81.9 % Lymphocytes (%) (Auto) 10.8 % Monocytes (%) (Auto) 7.2 % Eosinophils (%) (Auto) 0.0 % Basophils (%) (Auto) 0.1 % Neutrophils # (Auto) 11.2 TH/MM3 Lymphocytes # (Auto) 1.5 TH/MM3 Monocytes # (Auto) 1.0 TH/MM3 Eosinophils # (Auto) 0.0 TH/MM3 Basophils # (Auto) 0.0 TH/MM3 CBC Comment DIFF FINAL Differential Comment Prothrombin Time 12.5 SEC Prothromb Time International 1.1 RATIO Ratio Activated Partial 35.4 SEC Thromboplast Time Sodium Level 147 MEQ/L Potassium Level 4.0 MEQ/L Chloride Level 116 MEQ/L Carbon Dioxide Level 23.8 MEQ/L Anion Gap 7 MEQ/L Blood Urea Nitrogen 31 MG/DL Creatinine 0.70 MG/DL Estimat Glomerular Filtration 135 ML/MIN Rate Random Glucose 140 MG/DL Lactic Acid Level 1.0 mmol/L Calcium Level 8.0 MG/DL Phosphorus Level 3.2 MG/DL Magnesium Level 1.8 MG/DL Total Bilirubin 1.3 MG/DL Aspartate Amino Transf 9 U/L (AST/SGOT) Alanine Aminotransferase 11 U/L (ALT/SGPT) Alkaline Phosphatase 82 U/L Total Protein 5.3 GM/DL Albumin 1.6 GM/DL Urine Color YELLOW Urine Turbidity HAZY Urine pH 6.0 Urine Specific [place] 1.023 Urine Protein 30 mg/dL Urine Glucose (UA) NEG mg/dL Urine Ketones NEG mg/dL Urine Occult Blood SMALL Urine Nitrite NEG Urine Bilirubin NEG Urine Urobilinogen LESS THAN 2.0 MG/DL Urine Leukocyte Esterase MOD Urine RBC 15 /hpf Urine WBC 11 /hpf Urine Squamous Epithelial <1 /hpf Cells Urine Bacteria MOD /hpf Urine Hyaline Casts 1 /lpf Urine Mucus FEW /lpf Microscopic Urinalysis Comment CULTURE INDICATED Imaging Last Impressions Head CT 05/16/16 0000 Signed Impressions: Service Date/Time: May 14:45 - CONCLUSION: Stable examination. Antione Coy MD Chest X-Ray 05/16/16 0000 Signed Impressions: Service Date/Time: May 21:25 - CONCLUSION: Line in place and no pneumothorax. Cat Hwang MD Objective Remarks Narrative GENERAL: Cachectic, chronically ill-appearing SKIN: Pale HEAD: Atraumatic. Normocephalic. EYES: Pupils equal and round. No injection or drainage. Pallor present, no icterus ENT: Dry mucous membranes NECK: Trachea midline. CARDIOVASCULAR: Regular rate and rhythm. No murmur appreciated. RESPIRATORY: Clear to auscultation. Breath sounds equal bilaterally. GASTROINTESTINAL: Abdomen soft, non-tender, nondistended. MUSCULOSKELETAL: No obvious deformities. NEUROLOGICAL: Awake and alert. No obvious cranial nerve deficits. Moving all extremities. PSYCHIATRIC: Appropriate mood and affect; insight and judgment normal. A/P Assessment and Plan 71-year-old male with: Rectal bleeding Hemorrhagic shock Acute blood loss anemia SVT (converted to sinus tachycardia spontaneously) Metastatic renal cancer with numerous pulmonary metastasis status post palliative chemotherapy Failure to thrive Protein calorie malnutrition Plan: Neuro: Monitor neuro status. Pain medications as needed. CV: Patient was in SVT on arrival to the ER and converted spontaneously. Wean off Levophed keep MAP>65mmHg. Lactic acid resolved On stress dose steroids- HC 50mg IV Q6 Pulm: Continue with oxygen keep sat >92% GI/liver: NPO, GI is following s/p transfusion 4u PRBC since arrival. Renal/: Monitor renal function, I/O's, electrolytes replacement per protocol. Decrease IVF NS@75ml/hr Hemeonc: Patient was on Eliquis. s/p Kcentra for reversal. Oncology consulted in view of metastatic renal cell cancer who appears to be failing palliative chemotherapy. Monitor CBC transfuse if Hgb < 8. ID: Place on Rocephin for UTI. Monitor for signs of infections ( Fever, WBC) Follow up on urine cx Endo: SSI for glycemic control if needed. Prophylaxis: PPI/SCDs Patient has elected to be DNR status however wishes to continue other aggressive measures including blood transfusions. Palliative care is following. CCT 30 mins Sydni Barraza MD May 17, 2016 10:14
--- NOTE | 2016-05-17 10:29 | PD.CONS ---
Consult Service Palliative Care Consult Requested By [facility] Primary Care Physician Wayne Willams MD Reason for Consultation a. To assist with evaluation and management of symptoms including: pain b. To assist medical decision maker(s) with: better understanding of current medical conditions; weighing benefits/burdens of medical treatment options; making medical treatment decisions. HPI History of Present Illness 71 year old male with a history of metastatic renal carcinoma (pathology 07/13/15 , clear cell renal cell carcinoma) with mets to the lungs. Restaging CT from revealed progressive disease. Patient was contacted by hospice after Dr. Gray gave a referral in February 2016. He was initially upset that hospice was consulted, and at that time was not ready for hospice. Hospice receive a referral from Dr. Gray's office on May 16, 2016 to schedule an appointment for another visit. Patient per family, was only 105 pounds, does not eat anything has been only drinking small amount of water per day. He has been bleeding from his rectum and has not been able to take care of himself. When hospice arrived, patient was in his room on his knees by the bed and covered in feces. Family had called 911 and patient was taken to [facility] to be checked out. Patient has been taking Eliquist for his A. fib. In the ER: * Temperature is 97.6, pulse is 80, respirations 18, blood pressure is 85/50, pulse ox is 95% * Hemoglobin is 5.2, hematocrit 17.5, WBC 6.0, platelets 341 * Sodium is 145, potassium 3.2, chloride is //12, bicarbonate was 24.5, BUNs 29, creatinine 0.73, lactic acid is 2.4, alkaline phosphatase is 107, troponin I 0.02, AST 16, ALT is 12, albumin is 1.1 * PT 14.1, INR is 1.3, APTT is 30.1 * UA shows moderate leukocyte esterase, urine RBC was positive, nitrates was negative. Culture was indicated * Urine cultures pending * Has CT was stable. There is marked central and cortical atrophy with dilatation of the ventricle and sulcal basis. Parenchymal hemorrhage, acute infarction or mass lesion identified. Extra-axial fluid collection appreciated. The posterior pulses are unremarkable with midline fourth ventricle. The portion of the orbits and paranasal sinuses visualized were unremarkable. * Checks x-ray shows multiple lung nodules not significantly changed. Left IJ is present with tip overlapping in the expected region of the SVC. No pneumothorax. * CODE STATUS was discussed and patient elected DNR/DNI and would not want resuscitation if he were to decline. He does want aggressive measures short of resuscitation. * Patient was given 2 units of blood and K central. Patient has SVT on arrival will resolve on its own. * Patient transferred to ICU, central line was placed by production boring machine operator. Patient seen and evaluated by intensivists. GI consult was placed for rectal bleeding, serial H&H was ordered. Hematology oncology was consulted. Palliative care was consulted to review goals of care. Pt on my visit pretended to be sleeping, with eyes half close, when I try to wake him up. I told him "Mr. Hodge, I am sorry about your medical condition, your cancer. It must be difficult." He opened his eyes and acknowledge me more. He was very guarded. I told him, I just wanted to talk. I tried to explain to him I am with palliative care. He said his mouth was dry. 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 I told him I will not available tomorrow, he state "thats fine then. " He denies pain. I ask him if I can touch base with his sister or family, he states no. He did let me perform my exam, after I gave him ice cubes. Function/Cognitive Trajectory Patient has been losing weight, has decreased appetite, has increased weakness. Oncology has place hospice consult several times. Review of Systems ROS Limitations: Clinical Condition, Uncooperative Constitutional: COMPLAINS OF: Fatigue, Weight loss Endocrine: COMPLAINS OF: Polyuria Cardiovascular: COMPLAINS OF: Palpitations, Lower Extremity Edema Gastrointestinal: COMPLAINS OF: Bloody stools, Bloating Musculoskeletal: COMPLAINS OF: Muscle aches Past Family Social History Coded Allergies: No Known Allergies (Verified , 05/16/16) Past Medical History A. fib, renal cell carcinoma, CHF, hypertension, anemia Past Surgical History Left kidney removal June 2015. Genitourinary surgery possible stent collapse for urethral 1970s Reported Medications Amiodarone (Amiodarone HCl) 200 Mg Tab 200 Mg PO DAILY Eliquis (Apixaban) 5 Mg Tab 5 Mg PO DAILY Current Medications Medications (Trade) Dose Ordered Sig/Twan Route Start Time Stop Time Status Last Admin Pantoprazole Sodium 80 mg/ Sodium Chloride 100 ml @ 10 mls/hr Q10H IV 05/16/16 17:30 05/17/16 03:10 (NS 1000 ml Inj) 1,000 ml @ 150 mls/hr Q6H40M IV 05/16/16 16:45 05/17/16 08:18 (NS Flush) 2 ml UNSCH PRN IV FLUSH 05/16/16 16:45 (NS Flush) 2 ml BID IV FLUSH 05/16/16 21:00 (Zofran Inj) 4 mg Q6H PRN IV 05/16/16 16:45 Miscellaneous Information 1 Q361D XX 05/16/16 16:45 (Chlorhexidine 2% Cloth) 3 pack Taper DAILY@04 TOP 05/17/16 04:00 05/13/17 03:59 05/16/16 22:05 (Chlorhexidine 2% Cloth) 3 pack UNSCH PRN TOP 05/16/16 16:45 05/16/16 23:28 Hydrocortisone Sodium Succinate 50 mg 50 mg Q6HR IV PUSH 05/16/16 18:00 (Levophed-Dextrose Drip) 250 ml @ 0 mls/hr TITRATE IV 05/16/16 20:00 05/17/16 05:53 Terbutaline Sulfate 1 mg 1 mg UNSCH PRN SQ 05/16/16 19:45 Potassium Chloride 100 ml @ 50 mls/hr Q2H PRN IV 05/17/16 00:45 05/17/16 02:19 (KCl 20 Meq Premix Inj) 100 ml @ 50 mls/hr Q2H PRN IV 05/17/16 00:45 Potassium Chloride 40 meq 40 meq UNSCH PRN PO/TUBE 05/17/16 00:45 Potassium Chloride 100 ml @ 25 mls/hr UNSCH PRN IV 05/17/16 00:45 Potassium Chloride 100 ml @ 50 mls/hr Q2H PRN IV 05/17/16 00:45 (Magnesium Sulfate Inj/NS Inj) 100 ml @ 50 mls/hr UNSCH PRN IV 05/17/16 00:45 Magnesium Oxide 800 mg 800 mg UNSCH PRN PO 05/17/16 00:45 (Magnesium Sulfate Inj/NS Inj) 100 ml @ 50 mls/hr UNSCH PRN IV 05/17/16 00:45 Potassium Phosphate 2000 mg 2,000 mg Q4H PRN PO 05/17/16 00:45 (Sodium Phosphate Inj/NS 250 ml Inj) 250 ml @ 42 mls/hr UNSCH PRN IV 05/17/16 00:45 (KCl 40 Meq/30 ml Liq) 40 meq UNSCH PRN PO/TUBE 05/17/16 00:45 Potassium Phosphate 2000 mg 2,000 mg UNSCH PRN PO/TUBE 05/17/16 00:45 (Potassium Phosphate Inj/NS 250 ml Inj) 260 ml @ 42 mls/hr UNSCH PRN IV 05/17/16 00:45 (Morphine Inj) 2 mg Q2H PRN IV PUSH 05/17/16 03:00 05/17/16 03:04 Family History Both mother and father has history of hypertension Father from stomach cancer. One brother has stomach cancer. One sister has lung cancer. 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 Per medical records patient lives in his own house and is supported by a younger sister. Spiritual/Cultural Factors Anabaptism Living Will: Never completed Health Care Surrogate: Never completed Durable Power of Sand Caster Apprentice: Never completed Physical Exam Vital Signs Date Time Temp Pulse Resp B/P Pulse Ox O2 Delivery O2 Flow Rate FiO2 05/17/16 08:00 67 05/17/16 08:00 98.1 74 16 107/63 97 05/17/16 07:00 98.0 67 18 111/57 96 05/17/16 06:00 70 05/17/16 06:00 97.6 70 18 110/62 96 05/17/16 05:00 97.6 69 18 106/65 94 05/17/16 04:00 97.6 81 18 114/65 94 05/17/16 04:00 81 05/17/16 03:00 97.6 84 18 101/67 96 05/17/16 02:00 85 05/17/16 02:00 97.6 85 18 107/82 95 05/17/16 01:00 97.6 91 18 104/65 97 3/3/17 01:00 97.6 91 18 104/65 97 05/17/16 00:00 92 05/17/16 00:00 97.6 92 18 121/58 97 05/16/16 23:00 97.6 80 18 105/67 94 05/16/16 23:00 80 05/16/16 22:00 68 05/16/16 22:00 97.6 89 18 96/64 97 05/16/16 21:00 97.6 80 18 74/52 100 05/16/16 20:23 99.0 96 20 98/56 96 05/16/16 20:00 73 16 105/58 98 05/16/16 20:00 97.6 80 18 74/52 100 05/16/16 19:43 81 20 136/80 98 Nasal Cannula 2 05/16/16 19:00 97.6 86 16 89/58 98 05/16/16 18:05 80 18 76/39 99 Nasal Cannula 2 05/16/16 17:40 86 18 84/54 97 Nasal Cannula 2 05/16/16 17:33 65 18 75/56 97 Nasal Cannula 2 05/16/16 17:23 83 20 82/66 96 Nasal Cannula 2 05/16/16 17:20 79 19 82/66 95 05/16/16 17:05 95 18 82/52 97 Room Air 05/16/16 14:23 19 05/16/16 14:23 19 97 Room Air 05/16/16 14:11 97.6 80 19 85/50 95 05/16/16 05/17/16 19:00 07:00 Intake Total 750 ml 5068 ml Output Total 100 ml 50 ml Balance 650 ml 5018 ml Intake IV Total 3818 ml Albumin 250 ml Packed Cells 750 ml 1000 ml Output Urine Total 50 ml Emesis 100 ml Exam CONSTITUTIONAL/GENERAL: Thin pt, with promient ribs, temporal wasting. Fatigued SKIN: No jaundice, rashes, or lesions. Ecchymoses on upper extremities. No wounds seen anteriorly. Skin temperature appropriate. Not diaphoretic. HEAD: Atraumatic. Normocephalic. EYES: Pupils equal and round and reactive. Extraocular motions intact. ENT: Hearing grossly normal. Nose without bleeding or purulent drainage. Throat without visible erythema, exudates, masses, or lesions. NECK: Trachea midline. Supple, nontender. No palpable thyroid enlargement or nodularity. CARDIOVASCULAR: Regular rate and rhythm without murmurs, gallops, or rubs. No JVD. Peripheral pulses symmetric. RESPIRATORY/CHEST: Symmetric, unlabored respirations. Clear to auscultation. Breath sounds equal bilaterally. No wheezes, rales, or rhonchi. GASTROINTESTINAL: Abdomen soft, non-tender, nondistended. No hepato-splenomegaly , or palpable masses. No guarding. Bowel sounds present. GENITOURINARY: Without palpable bladder distension. Carmichael catheter in place. MUSCULOSKELETAL: Extremities without clubbing, cyanosis, or edema. No joint tenderness or effusion noted. No calf tenderness. No mottling or clubbing. LYMPHATICS: No palpable cervical or supraclavicular adenopathy. NEUROLOGICAL: Awake and alert. Motor and sensory grossly within normal limits. Diagnostic Tests Laboratory Laboratory Tests Test 05/16/16 05/16/16 05/16/16 05/16/16 15:05 16:18 16:27 16:41 Prothrombin Time 14.1 SEC (9.8-11.6) Prothromb Time International 1.3 RATIO Ratio Activated Partial 30.1 SEC Thromboplast Time (24.3-30.1) Sodium Level 145 MEQ/L (136-145) Potassium Level 3.2 MEQ/L (3.5-5.1) Chloride Level 112 MEQ/L (98-107) Carbon Dioxide Level 24.5 MEQ/L (21.0-32.0) Anion Gap 9 MEQ/L (5-15) Blood Urea Nitrogen 29 MG/DL (7-18) Creatinine 0.73 MG/DL (0.60-1.30) Estimat Glomerular Filtration 129 ML/MIN Rate (>89) Random Glucose 108 MG/DL (74-106) Calcium Level 8.4 MG/DL (8.5-10.1) Total Bilirubin 0.3 MG/DL (0.2-1.0) Aspartate Amino Transf 16 U/L (15-37) (AST/SGOT) Alanine Aminotransferase 12 U/L (12-78) (ALT/SGPT) Alkaline Phosphatase 107 U/L (45-117) Total Creatine Kinase 46 U/L (39-308) Troponin I 0.02 NG/ML (0.02-0.05) Total Protein 5.8 GM/DL (6.4-8.2) Albumin 1.1 GM/DL (3.4-5.0) Blood Type O POSITIVE Antibody Screen NEGATIVE White Blood Count 6.0 TH/MM3 (4.0-11.0) Red Blood Count 2.13 MIL/MM3 (4.50-5.90) Hemoglobin 5.2 GM/DL (13.0-17.0) Hematocrit 17.5 % (39.0-51.0) Mean Corpuscular Volume 82.1 FL (80.0-100.0) Mean Corpuscular Hemoglobin 24.2 PG (27.0-34.0) Mean Corpuscular Hemoglobin 29.4 % Concent (32.0-36.0) Red Cell Distribution Width 18.2 % (11.6-17.2) Platelet Count 341 TH/MM3 (150-450) Mean Platelet Volume 8.0 FL (7.0-11.0) Neutrophils (%) (Auto) 65.6 % (16.0-70.0) Lymphocytes (%) (Auto) 24.4 % (9.0-44.0) Monocytes (%) (Auto) 9.6 % (0.0-8.0) Eosinophils (%) (Auto) 0.0 % (0.0-4.0) Basophils (%) (Auto) 0.4 % (0.0-2.0) Neutrophils # (Auto) 3.9 TH/MM3 (1.8-7.7) Lymphocytes # (Auto) 1.5 TH/MM3 (1.0-4.8) Monocytes # (Auto) 0.6 TH/MM3 (0-0.9) Eosinophils # (Auto) 0.0 TH/MM3 (0-0.4) Basophils # (Auto) 0.0 TH/MM3 (0-0.2) CBC Comment AUTO DIFF Differential Comment AUTO DIFF CONFIRMED Platelet Estimate NORMAL (NORMAL) Platelet Morphology Comment NORMAL (NORMAL) Tear Drop Cells 1+ (NORMAL) Ovalocytes 2+ (NORMAL) Crossmatch Leukocyte-Reduced Leukocyte-Reduced Leukocyte-Reduced Red Blood Red Blood Red Blood Cells Cells Cells Blood Bank Comment Test 05/16/16 05/16/16 05/16/16 05/17/16 19:25 20:08 21:11 00:25 Hemoglobin 7.7 GM/DL 8.6 GM/DL (13.0-17.0) (13.0-17.0) Hematocrit 24.2 % 25.6 % (39.0-51.0) (39.0-51.0) Platelet Count 283 TH/MM3 (150-450) Lactic Acid Level 2.4 mmol/L (0.4-2.0) Nasal Screen MRSA (PCR) NEGATIVE (NEGATIVE) Random Cortisol 146.7 MCG/DL Test 05/17/16 05/17/16 05/17/16 03:51 05:55 08:30 White Blood Count 13.6 TH/MM3 (4.0-11.0) Red Blood Count 3.25 MIL/MM3 (4.50-5.90) Hemoglobin 8.7 GM/DL 8.3 GM/DL (13.0-17.0) (13.0-17.0) Hematocrit 26.5 % 25.1 % (39.0-51.0) (39.0-51.0) Mean Corpuscular Volume 81.7 FL (80.0-100.0) Mean Corpuscular Hemoglobin 26.7 PG (27.0-34.0) Mean Corpuscular Hemoglobin 32.7 % Concent (32.0-36.0) Red Cell Distribution Width 16.3 % (11.6-17.2) Platelet Count 286 TH/MM3 (150-450) Mean Platelet Volume 7.3 FL (7.0-11.0) Neutrophils (%) (Auto) 81.9 % (16.0-70.0) Lymphocytes (%) (Auto) 10.8 % (9.0-44.0) Monocytes (%) (Auto) 7.2 % (0.0-8.0) Eosinophils (%) (Auto) 0.0 % (0.0-4.0) Basophils (%) (Auto) 0.1 % (0.0-2.0) Neutrophils # (Auto) 11.2 TH/MM3 (1.8-7.7) Lymphocytes # (Auto) 1.5 TH/MM3 (1.0-4.8) Monocytes # (Auto) 1.0 TH/MM3 (0-0.9) Eosinophils # (Auto) 0.0 TH/MM3 (0-0.4) Basophils # (Auto) 0.0 TH/MM3 (0-0.2) CBC Comment DIFF FINAL Differential Comment Prothrombin Time 12.5 SEC (9.8-11.6) Prothromb Time International 1.1 RATIO Ratio Activated Partial 35.4 SEC Thromboplast Time (24.3-30.1) Sodium Level 147 MEQ/L (136-145) Potassium Level 4.0 MEQ/L (3.5-5.1) Chloride Level 116 MEQ/L (98-107) Carbon Dioxide Level 23.8 MEQ/L (21.0-32.0) Anion Gap 7 MEQ/L (5-15) Blood Urea Nitrogen 31 MG/DL (7-18) Creatinine 0.70 MG/DL (0.60-1.30) Estimat Glomerular Filtration 135 ML/MIN Rate (>89) Random Glucose 140 MG/DL (74-106) Lactic Acid Level 1.0 mmol/L (0.4-2.0) Calcium Level 8.0 MG/DL (8.5-10.1) Phosphorus Level 3.2 MG/DL (2.5-4.9) Magnesium Level 1.8 MG/DL (1.5-2.5) Total Bilirubin 1.3 MG/DL (0.2-1.0) Aspartate Amino Transf 9 U/L (15-37) (AST/SGOT) Alanine Aminotransferase 11 U/L (12-78) (ALT/SGPT) Alkaline Phosphatase 82 U/L (45-117) Total Protein 5.3 GM/DL (6.4-8.2) Albumin 1.6 GM/DL (3.4-5.0) Urine Color YELLOW (YELLW/STRAW) Urine Turbidity HAZY (CLEAR) Urine pH 6.0 (5.0-8.5) Urine Specific [place] 1.023 (1.002-1.035) Urine Protein 30 mg/dL (NEG-TRACE) Urine Glucose (UA) NEG mg/dL (NEG) Urine Ketones NEG mg/dL (NEG) Urine Occult Blood SMALL (NEG) Urine Nitrite NEG (NEG) Urine Bilirubin NEG (NEG) Urine Urobilinogen LESS THAN 2.0 MG/DL (LESS THAN 2.0) Urine Leukocyte Esterase MOD (NEG) Urine RBC 15 /hpf (0-3) Urine WBC 11 /hpf (0-5) Urine Squamous Epithelial <1 /hpf (0-5) Cells Urine Bacteria MOD /hpf (NONE) Urine Hyaline Casts 1 /lpf (RARE) Urine Mucus FEW /lpf (OCC) Microscopic Urinalysis Comment CULTURE INDICATED Result Diagram: 05/17/16 0830 05/17/16 0351 Microbiology Microbiology Date/Time Procedure Status Source Growth 05/17/16 05:55 Urine Culture Received Urine Random Urine Pending Imaging Last Impressions Head CT 05/16/16 0000 Signed Impressions: Service Date/Time: May 14:45 - CONCLUSION: Stable examination. Antione Coy MD Chest X-Ray 05/16/16 0000 Signed Impressions: Service Date/Time: May 21:25 - CONCLUSION: Line in place and no pneumothorax. Cat Hwang MD Patient/Family Conference Present at Family Conference: patient Family Conference Time (mins): 40 Family Conference Location: Bedside Issues Discussed: * Palliative care role, purpose, approach But did not let me really carry on with much else. * Additional medical, psychosocial, and spiritual history * Patients general health, functional status, and cognitive changes in the months leading up to the current hospitalization * Patient/family understanding of the current medical problems * Patient/family understanding of prognosis * Patients goals of care as best understood from advance directives and/or conversations and/or values * Current medical treatment options and benefits/burdens of those options * Likely scenarios comparing ongoing aggressive care with a transition to comfort measures only * Questions answered to the best of my ability * Palliative care contact information provided Assessment and Plan Disease Oriented Problem List: (1) Metastatic renal cell carcinoma Comment: poor prognosis (2) CHF (congestive heart failure) (3) Anemia (4) SVT (supraventricular tachycardia) Comment: resolved (5) GI bleed (6) Coagulopathy (7) Atrial fibrillation Symptom Scale: (1) Pain 0-10 Scale: 0 Comment: he was dismissive of pain. Pertinent Non-Medical Issues Psychosocial: Spiritual: Legal: Ethical issues impacting care: Important Contacts Clare Hodge [phone] David Seth [phone] Prognosis Metastatic renal cell cancer,mets to the lungs. Appropriate for hospice if goals is to focus on comfort measure only. Code Status: No Code Plan == Code- DNR/DNI == HCProxy- would be pt mom. ==Goals: Pt is very guarded. Pt on my visit pretended to be sleeping, with eyes half close, when I try to wake him up. I told him "Mr. Hodge, I am sorry about your medical condition, your cancer. It must be difficult." He opened his eyes and acknowledge me more. He was very guarded. I told him, I just wanted to talk. I tried to explain to him I am with palliative care. He said his mouth was dry. 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 I told him I will not available tomorrow, he state "thats fine then." I ask him if I can touch base with his sister or family, he states no. I could not review goals of care with patient today. == pain- he denies pain. == palliative care will continue to follow. Thank you for the opportunity to participate in the care of Mr. Hodge. Attestation To help prompt me to consider important information that might be impacting today's encounter and assessment, information from prior notes written by myself or my colleagues may have been "brought forward" into today's note. My signature on this note, however, is an attestation that I personally performed the exam, history, and/or decision-making noted today, and, unless otherwise indicated, the interactions with patient, family, and staff as well as the review of records all occurred today. I also attest that the listed assessment and stated plan reflect my best clinical judgment today based on the combination of historical information, prior notes, and today's exam/ interactions. When time spent is documented, it refers only to time spent today by the signer, or if indicated, combined time spent today by collaborating physician/nurse practitioner. Tal Nelson MD May 17, 2016 10:29
[2016-05-17] MEDS: cefTRIAXone INJ 1,000 MG in SODIUM CHLORIDE 0.9% INJ 100 ML IV SCH (12:33)
[2016-05-17] MEDS: HYDROCORTISONE SOD SUCCINATE 100 MG VIAL IV PUSH SCH ×2 (12:33→17:11)
--- NOTE | 2016-05-17 12:35 | PD.CONS ---
HPI History of Present Illness This is a 71 year old male with a history of metastatic renal cell carcinoma who is here for evaluation of feeling generally weak, fatigued and was admitted for hemorrhagic shock. He reportedly noticed some bright red blood from his rectum about 2 days ago. Patient not interested in talking stating he wants to sleep, therefore, there is a paucity of information. Reports emesis yesterday with little blood. Denies ever having colonoscopy, he is on Eliquis. He has cachexia. I spoke to nurse, no more rectal bleeding since arrival, however, he did have one episode of hematemesis yesterday. hgb on arrival was 5.2 s/p 4 units of blood, hgb today 8.3 and stable, no signs of active bleeding. He denies abdomen pain or melena. (Galina Saini) PFSH Past Medical History A. fib, renal cell carcinoma, CHF, hypertension, anemia Past Surgical History Left kidney removal June 2015. Genitourinary surgery possible stent collapse for urethral 1970s (Galina Saini) Coded Allergies: No Known Allergies (Verified , 05/16/16) Medications Current Medications Medications (Trade) Dose Ordered Sig/Twan Route Start Time Stop Time Status Last Admin Pantoprazole Sodium 80 mg/ Sodium Chloride 100 ml @ 10 mls/hr Q10H IV 05/16/16 17:30 05/17/16 03:10 (NS 1000 ml Inj) 1,000 ml @ 100 mls/hr Q10H IV 05/16/16 16:45 05/17/16 08:18 (NS Flush) 2 ml UNSCH PRN IV FLUSH 05/16/16 16:45 (NS Flush) 2 ml BID IV FLUSH 05/16/16 21:00 (Zofran Inj) 4 mg Q6H PRN IV 05/16/16 16:45 Miscellaneous Information 1 Q361D XX 05/16/16 16:45 (Chlorhexidine 2% Cloth) 3 pack Taper DAILY@04 TOP 05/17/16 04:00 05/13/17 03:59 05/16/16 22:05 (Chlorhexidine 2% Cloth) 3 pack UNSCH PRN TOP 05/16/16 16:45 05/16/16 23:28 Hydrocortisone Sodium Succinate 50 mg 50 mg Q6HR IV PUSH 05/16/16 18:00 (Levophed-Dextrose Drip) 250 ml @ 0 mls/hr TITRATE IV 05/16/16 20:00 05/17/16 05:53 Terbutaline Sulfate 1 mg 1 mg UNSCH PRN SQ 05/16/16 19:45 Potassium Chloride 100 ml @ 50 mls/hr Q2H PRN IV 05/17/16 00:45 05/17/16 02:19 (KCl 20 Meq Premix Inj) 100 ml @ 50 mls/hr Q2H PRN IV 05/17/16 00:45 Potassium Chloride 40 meq 40 meq UNSCH PRN PO/TUBE 05/17/16 00:45 Potassium Chloride 100 ml @ 25 mls/hr UNSCH PRN IV 05/17/16 00:45 Potassium Chloride 100 ml @ 50 mls/hr Q2H PRN IV 05/17/16 00:45 (Magnesium Sulfate Inj/NS Inj) 100 ml @ 50 mls/hr UNSCH PRN IV 05/17/16 00:45 Magnesium Oxide 800 mg 800 mg UNSCH PRN PO 05/17/16 00:45 (Magnesium Sulfate Inj/NS Inj) 100 ml @ 50 mls/hr UNSCH PRN IV 05/17/16 00:45 Potassium Phosphate 2000 mg 2,000 mg Q4H PRN PO 05/17/16 00:45 (Sodium Phosphate Inj/NS 250 ml Inj) 250 ml @ 42 mls/hr UNSCH PRN IV 05/17/16 00:45 (KCl 40 Meq/30 ml Liq) 40 meq UNSCH PRN PO/TUBE 05/17/16 00:45 Potassium Phosphate 2000 mg 2,000 mg UNSCH PRN PO/TUBE 05/17/16 00:45 (Potassium Phosphate Inj/NS 250 ml Inj) 260 ml @ 42 mls/hr UNSCH PRN IV 05/17/16 00:45 Morphine Sulfate 2 mg 2 mg Q2H PRN IV PUSH 05/17/16 03:00 05/17/16 03:04 (Rocephin Inj/NS Inj) 100 ml @ 200 mls/hr Q24H IV 05/17/16 12:00 Family History Both mother and father has history of hypertension Father from stomach cancer. One brother has stomach cancer. One sister has lung cancer. Social History Denies alcohol Denies smoking (Amawi,Khawla TAPE TRANSFERRER) Review of Systems Constitutional: COMPLAINS OF: Fatigue, Dizziness Endocrine: DENIES: Polyuria Eyes: DENIES: Double Vision Ears, nose, mouth, throat: DENIES: Hoarseness Respiratory: DENIES: Shortness of breath Cardiovascular: DENIES: Lower Extremity Edema Gastrointestinal: COMPLAINS OF: Bloody stools, Nausea, Vomiting, Anorexia, Hematemesis, DENIES: Abdominal pain, Black stools, Constipation, Diarrhea, Difficulty Swallowing, Odynophagia, Swelling of Abdomen, Heartburn Genitourinary: DENIES: Hematuria Musculoskeletal: DENIES: Neck pain Integumentary: DENIES: Jaundice Hematologic/lymphatic: DENIES: Bruising Immunologic/allergic: DENIES: Eczema Neurologic: DENIES: Abnormal gait Psychiatric: DENIES: Anxiety (Galina Saini) GI Exam Vitals I&O Vital Signs Date Time Temp Pulse Resp B/P Pulse Ox O2 Delivery O2 Flow Rate FiO2 05/17/16 11:45 96 Nasal Cannula 2.00 05/17/16 10:00 76 05/17/16 08:00 67 05/17/16 08:00 98.1 74 16 107/63 97 05/17/16 07:00 98.0 67 18 111/57 96 05/17/16 06:00 70 05/17/16 06:00 97.6 70 18 110/62 96 05/17/16 05:00 97.6 69 18 106/65 94 05/17/16 04:00 97.6 81 18 114/65 94 05/17/16 04:00 81 05/17/16 03:00 97.6 84 18 101/67 96 05/17/16 02:00 85 05/17/16 02:00 97.6 85 18 107/82 95 05/17/16 01:00 97.6 91 18 104/65 97 05/17/16 01:00 97.6 91 18 104/65 97 05/17/16 00:00 92 05/17/16 00:00 97.6 92 18 121/58 97 05/16/16 23:00 97.6 80 18 105/67 94 05/16/16 23:00 80 05/16/16 22:00 68 05/16/16 22:00 97.6 89 18 96/64 97 05/16/16 21:00 97.6 80 18 74/52 100 05/16/16 20:23 99.0 96 20 98/56 96 05/16/16 20:00 73 16 105/58 98 05/16/16 20:00 97.6 80 18 74/52 100 05/16/16 19:43 81 20 136/80 98 Nasal Cannula 2 05/16/16 19:00 97.6 86 16 89/58 98 05/16/16 18:05 80 18 76/39 99 Nasal Cannula 2 05/16/16 17:40 86 18 84/54 97 Nasal Cannula 2 05/16/16 17:33 65 18 75/56 97 Nasal Cannula 2 05/16/16 17:23 83 20 82/66 96 Nasal Cannula 2 05/16/16 17:20 79 19 82/66 95 05/16/16 17:05 95 18 82/52 97 Room Air 05/16/16 14:23 19 05/16/16 14:23 19 97 Room Air 05/16/16 14:11 97.6 80 19 85/50 95 I/O 05/16/16 05/16/16 05/16/16 05/17/16 05/17/16 05/17/16 07:00 15:00 23:00 07:00 15:00 23:00 Intake Total 4276 ml 1542 ml Output Total 100 ml 50 ml Balance 4176 ml 1492 ml Intake IV Total 2276 ml 1542 ml Albumin 250 ml Packed Cells 1750 ml Output Urine Total 50 ml Emesis 100 ml Imaging Last Impressions Head CT 05/16/16 0000 Signed Impressions: Service Date/Time: May 14:45 - CONCLUSION: Stable examination. Antione Coy MD Chest X-Ray 05/16/16 0000 Signed Impressions: Service Date/Time: May 21:25 - CONCLUSION: Line in place and no pneumothorax. Cat Hwang MD Laboratory Test 05/16/16 05/16/16 05/16/16 05/16/16 15:05 16:18 16:27 16:41 Prothrombin Time 14.1 SEC Prothromb Time International 1.3 RATIO Ratio Activated Partial 30.1 SEC Thromboplast Time Sodium Level 145 MEQ/L Potassium Level 3.2 MEQ/L Chloride Level 112 MEQ/L Carbon Dioxide Level 24.5 MEQ/L Anion Gap 9 MEQ/L Blood Urea Nitrogen 29 MG/DL Creatinine 0.73 MG/DL Estimat Glomerular Filtration 129 ML/MIN Rate Random Glucose 108 MG/DL Calcium Level 8.4 MG/DL Total Bilirubin 0.3 MG/DL Aspartate Amino Transf 16 U/L (AST/SGOT) Alanine Aminotransferase 12 U/L (ALT/SGPT) Alkaline Phosphatase 107 U/L Total Creatine Kinase 46 U/L Troponin I 0.02 NG/ML Total Protein 5.8 GM/DL Albumin 1.1 GM/DL Blood Type O POSITIVE Antibody Screen NEGATIVE White Blood Count 6.0 TH/MM3 Red Blood Count 2.13 MIL/MM3 Hemoglobin 5.2 GM/DL Hematocrit 17.5 % Mean Corpuscular Volume 82.1 FL Mean Corpuscular Hemoglobin 24.2 PG Mean Corpuscular Hemoglobin 29.4 % Concent Red Cell Distribution Width 18.2 % Platelet Count 341 TH/MM3 Mean Platelet Volume 8.0 FL Neutrophils (%) (Auto) 65.6 % Lymphocytes (%) (Auto) 24.4 % Monocytes (%) (Auto) 9.6 % Eosinophils (%) (Auto) 0.0 % Basophils (%) (Auto) 0.4 % Neutrophils # (Auto) 3.9 TH/MM3 Lymphocytes # (Auto) 1.5 TH/MM3 Monocytes # (Auto) 0.6 TH/MM3 Eosinophils # (Auto) 0.0 TH/MM3 Basophils # (Auto) 0.0 TH/MM3 CBC Comment AUTO DIFF Differential Comment AUTO DIFF CONFIRMED Platelet Estimate NORMAL Platelet Morphology Comment NORMAL Tear Drop Cells 1+ Ovalocytes 2+ Crossmatch Leukocyte-Reduced Leukocyte-Reduced Leukocyte-Reduced Red Blood Red Blood Red Blood Cells Cells Cells Blood Bank Comment Test 05/16/16 05/16/16 05/16/16 05/17/16 19:25 20:08 21:11 00:25 Hemoglobin 7.7 GM/DL 8.6 GM/DL Hematocrit 24.2 % 25.6 % Platelet Count 283 TH/MM3 Lactic Acid Level 2.4 mmol/L Nasal Screen MRSA (PCR) NEGATIVE Random Cortisol 146.7 MCG/DL Test 05/17/16 05/17/16 05/17/16 03:51 05:55 08:30 White Blood Count 13.6 TH/MM3 Red Blood Count 3.25 MIL/MM3 Hemoglobin 8.7 GM/DL 8.3 GM/DL Hematocrit 26.5 % 25.1 % Mean Corpuscular Volume 81.7 FL Mean Corpuscular Hemoglobin 26.7 PG Mean Corpuscular Hemoglobin 32.7 % Concent Red Cell Distribution Width 16.3 % Platelet Count 286 TH/MM3 Mean Platelet Volume 7.3 FL Neutrophils (%) (Auto) 81.9 % Lymphocytes (%) (Auto) 10.8 % Monocytes (%) (Auto) 7.2 % Eosinophils (%) (Auto) 0.0 % Basophils (%) (Auto) 0.1 % Neutrophils # (Auto) 11.2 TH/MM3 Lymphocytes # (Auto) 1.5 TH/MM3 Monocytes # (Auto) 1.0 TH/MM3 Eosinophils # (Auto) 0.0 TH/MM3 Basophils # (Auto) 0.0 TH/MM3 CBC Comment DIFF FINAL Differential Comment Prothrombin Time 12.5 SEC Prothromb Time International 1.1 RATIO Ratio Activated Partial 35.4 SEC Thromboplast Time Sodium Level 147 MEQ/L Potassium Level 4.0 MEQ/L Chloride Level 116 MEQ/L Carbon Dioxide Level 23.8 MEQ/L Anion Gap 7 MEQ/L Blood Urea Nitrogen 31 MG/DL Creatinine 0.70 MG/DL Estimat Glomerular Filtration 135 ML/MIN Rate Random Glucose 140 MG/DL Lactic Acid Level 1.0 mmol/L Calcium Level 8.0 MG/DL Phosphorus Level 3.2 MG/DL Magnesium Level 1.8 MG/DL Total Bilirubin 1.3 MG/DL Aspartate Amino Transf 9 U/L (AST/SGOT) Alanine Aminotransferase 11 U/L (ALT/SGPT) Alkaline Phosphatase 82 U/L Total Protein 5.3 GM/DL Albumin 1.6 GM/DL Urine Color YELLOW Urine Turbidity HAZY Urine pH 6.0 Urine Specific [place] 1.023 Urine Protein 30 mg/dL Urine Glucose (UA) NEG mg/dL Urine Ketones NEG mg/dL Urine Occult Blood SMALL Urine Nitrite NEG Urine Bilirubin NEG Urine Urobilinogen LESS THAN 2.0 MG/DL Urine Leukocyte Esterase MOD Urine RBC 15 /hpf Urine WBC 11 /hpf Urine Squamous Epithelial <1 /hpf Cells Urine Bacteria MOD /hpf Urine Hyaline Casts 1 /lpf Urine Mucus FEW /lpf Microscopic Urinalysis Comment CULTURE INDICATED Date/Time Procedure Status Source Growth 05/17/16 05:55 Urine Culture Received Urine Random Urine Pending Physical Examination HEENT: normocephalic; atraumatic; no jaundice. NECK: Neck is supple, no JVD, no lymphadenopathy. CHEST: Chest is clear to auscultation and percussion. CARDIAC: Regular rate and rhythm with no murmur gallop or rubs. ABDOMEN: Soft, nondistended, nontender; no hepatosplenomegaly; bowel sounds are present in all four quadrants. EXTREMITIES: No clubbing, cyanosis, or edema. SKIN: Normal; no rash; no jaundice. SENIOR PHYSICAL THERAPIST: No focal deficits; alert and oriented times three. (Galina Saini) Assessment and Plan Plan - GI bleed/ one episode of rectal bleeding few days ago, one episode of hematemesis yesterday This is a 71 year old male with a history of metastatic renal cell carcinoma who is here for evaluation of feeling generally weak, fatigued and was admitted for hemorrhagic shock. He reportedly noticed some bright red blood from his rectum about 2 days ago. Patient not interested in talking stating he wants to sleep, therefore, there is a paucity of information. Reports emesis yesterday with little blood. Denies ever having colonoscopy, he is on Eliquis. He has cachexia. I spoke to nurse, no more rectal bleeding since arrival, however, he did have one episode of hematemesis yesterday. hgb on arrival was 5.2 s/p 4 units of blood, hgb today 8.3 and stable, no signs of active bleeding. He denies abdomen pain or melena. - history of metastatic renal cell carcinoma - Failure to thrive/malnutrition palliative on the case Plan: - Diet per attending - Patient with metastatic renal cancer, will avoid EGD/colonoscopy unless actively bleeding, will monitor, case was discussed with nurse - PPI Gtt - Monitor hh - Transfuse as needed - notify GI for active bleeding - Cont. to hold Eliquis - Supportive care - Patient seen and examined by Dr. workman and myself and this note is written on his behalf. (Galina Saini) Physician Comments Patient seen and examined Agree with above Continue with current supportive care Monitor labs Not much to add at this point from a GI perspective therefore we will sign off Please reconsult as needed (Clement Workman MD) Galina Saini May 17, 2016 12:35 Clement Workman MD May 17, 2016 23:45
--- NOTE | 2016-05-17 13:30 | MB ---
cc: SWATHI LEAVITT MD DATE OF CONSULTATION: 05/16/2016 HEMATOLOGY/ONCOLOGY CONSULTATION NOTE Consult requested by the critical care service. REASON FOR CONSULTATION Patient with metastatic renal cell carcinoma with extensive hemoptysis and GI bleeding. He presents with a hemoglobin of 5.2 gm/dl. CHIEF COMPLAINT Mr. Hodge reports vomiting and coughing up blood. He reports not having had anything to eat in three days. He reports generalized weakness and fatigue. He also reports having had blood in his stool. HISTORY OF PRESENT ILLNESS Mr. Hodge is a 71-year-old male who is well-known to me from my outpatient practice. Mr. Hodge was diagnosed a little over a year ago with metastatic renal cell carcinoma. He had multiple pulmonary metastases at the time of diagnosis. Unfortunately his disease has been very refractory to multiple lines of palliative systemic therapy. His disease progressed rapidly on Votrient and subsequently progressed on Avastin and he subsequently failed to respond to third-line systemic therapy with nivolumab. When I last saw him in February 2016 he was recommended Hospice level of care. The patient, however, declined Hospice and chose to care for himself or at least attempt to at home. Unfortunately, he has just been failing to thrive it appears over the past two months. He is visibly emaciated and was brought into the hospital by EMS because he had been spitting up blood and was also noticing blood per rectum. He was noted to be severely anemic and in the emergency department was transfused three units of packed red blood cells for supportive care. Subjectively, he tells me that he has been generally weak. He denies specific aches and pains. Overall he appears to be somewhat withdrawn. PAST MEDICAL HISTORY 1. Metastatic renal cell carcinoma. 2. Congestive heart failure. 3. Atrial fibrillation. 4. Hyperlipidemia. 5. Hypertension. PAST SURGICAL HISTORY Left nephrectomy performed in June 2015. FAMILY HISTORY Parents are both . Father with gastric cancer and brother at 58 from gastric carcinoma as well. His sister age 51 from lung carcinoma. SOCIAL HISTORY The patient is single and lives at home alone. 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 He is a former smoker. He smoked about half a pack a day for 50 years but quit in November 2015. He also reports being a regular alcohol drinker. His major support is his younger sister who lives in [facility]. ALLERGIES No known drug allergies. MEDICATIONS Current inpatient medications: 1. Norepinephrine. 2. Pantoprazole 80 mg IV q.10h. 3. Albumin 25 grams IV x1. 4. Hydrocortisone 50 mg IV q.6h. 5. Blood transfusions. REVIEW OF SYSTEMS CONSTITUTIONAL: Mr. Hodge reports having no appetite. He reports weight loss. He reports easy weakness. HEENT: Denies headache, blurry vision or difficulty swallowing. RESPIRATORY: Reports shortness of breath. He reports he has a sitting up blood. Denies pleuritic chest pain. CARDIOVASCULAR: Denies angina-like chest pain, PND, orthopnea. Reports shortness of breath with minimal exertion. GASTROINTESTINAL: Reports poor appetite. Denies nausea, vomiting or diarrhea. He reports having blood in his stools. GENITOURINARY: Denies dysuria, hematuria, urinary incontinence. MUSCULOSKELETAL: Reports loss of muscle mass and tone. PHYSICAL EXAMINATION VITAL SIGNS: Temperature 97.6 degrees Fahrenheit, heart rate 96 beats per minute, blood pressure 98/56, O2 sat 96% on two liters nasal cannula. GENERAL APPEARANCE: Mr. Hodge is an elderly male. He is lying in the ER stretcher curled up. He is spitting out blood-tinged saliva. He coughs frequently. He barely opens his eyes to talk to me. HEENT: Head is atraumatic, normocephalic. Conjunctivae are pale. Sclerae are anicteric. Oral exam - blood-tinged sputum in the mouth. PULMONARY: Tachypneic. He has dispersed rales and rhonchi. CARDIOVASCULAR: Tachycardic, irregular rhythm, S1, S2. No obvious murmurs, rubs or gallops. ABDOMEN: Thin belly, soft, nontender, nondistended. Palpable organ enlargement. He is emaciated. MUSCULOSKELETAL: Generalized muscle mass loss. Decreased muscle tone. EXTREMITIES: Lower extremities have no pretibial edema. NUCLEAR PLANT OPERATOR: Generally weak. LABORATORY FINDINGS Blood work dated 05/16/2016: WBC count 6, hemoglobin 5.2 gm/dl, hematocrit 17.5%, platelet count 341, absolute neutrophil count 2.9. Chemistries: Sodium 145, potassium 3.2, chloride 112, bicarb 24.5, BUN 29, creatinine 0.73, EGFR 129, glucose 108, lactic acid 2.4, calcium 8.4, total bilirubin 0.8, AST 16, ALT 12, alkaline phosphatase 107, albumin 1.1. IMAGING STUDIES Chest x-ray dated 05/16/2016: Innumerable pulmonary nodules. ASSESSMENT Mr. Hodge is a 71-year-old male who unfortunately is approaching the end of his life. He has extensive metastatic renal cell carcinoma which was refractory to various lines of palliative systemic therapy. Treatment was discontinued in February 2016 because his performance status was just declining as well as his nutritional status. He was clearly progressing on third-line palliative systemic therapy which at the time was involumab. In late February when I last met Mr. Hodge I had suggested and made a referral to Hospice, however, he declined Hospice and chose to "go at it on his own at home." He unfortunately has been failing to thrive at home. He comes into the emergency department brought in by EMS due to ongoing hematochezia, hemoptysis and general frailty. At presentation he was hypotensive and was noted to have a hemoglobin of 5.2 gm/dl. In my assessment the cause of his hemoptysis is likely the extensive pulmonary metastases from the renal cell carcinoma. I think he may have also been continuing his anticoagulation with low dose Eliquis. He has been transfused multiple units of red cells in the emergency department and was subsequently transferred to the cortical care unit for intensive management. I was asked to see the patient to help define further goals of care since he had been under my care for the better part of the past one year. RECOMMENDATIONS Metastatic renal cell carcinoma: Mr. Hodge is clearly approaching the end of his life. I would recommend a palliative approach in all interventions going forward. All care should be comfort oriented. I agree with him being a no-code. He ought to be kept comfortable. I would like to add that Mr. Hodge from a personality standpoint has been very resistant to palliation or to the idea of Hospice. He does seem to understand he is dying but just cannot bring himself to accept Hospice or the concept of end-of-life. In the past I have tried to broach this topic with him but he becomes quite withdrawn when this discussion is initiated. I will consult our palliative care service so they can assist in comfort-oriented care. I think it was reasonable to transfuse him the red blood cells. I would, however, suggest a more restrained approach going forward given his imminent demise in my view. MD SUKHJINDER Jordan /9:29 PM /12:55 PM
[2016-05-17 16:15] LABS: HEMATOCRIT 24.2 % (39.0-51.0); REVIEW FLAG FINAL
[2016-05-17 22:31] LABS: HEMATOCRIT 23.8 % (39.0-51.0); REVIEW FLAG FINAL
--- NOTE | 2016-05-17 23:33 | EKG ---
Date Performed: 05/16/2016 Time Performed: 14:15:52 PTAGE: 71 years EKG: Sinus rhythm WITH FREQUENT VENTRICULAR PREMATURE COMPLEXES WITH MARKED RHYTHM IRREGULARITY, POSSIBLE NON-CONDUCTE D PAC, SA BLOCK, AV BLOCK, OR SINUS PAUSE ABNORMAL ECG NO PREVIOUS TRACING DOCTOR: Marc Lao Interpretating Date/Time 05/17/2016 23:31:49
[2016-05-18] VITALS (11 sets, daily range): BP systolic 91–104; BP diastolic 56–65; PULSE 46–80; RESP 12–19; TEMP 97.4–97.8; O2SAT 93–96
[2016-05-18] MEDS: HYDROCORTISONE SOD SUCCINATE 100 MG VIAL IV PUSH SCH ×5 (01:17→23:47)
[2016-05-18] MEDS: SODIUM CHLOR 0.9% 1000 ML INJ 1,000 ML IV SCH (01:17)
[2016-05-18] MEDS: CHLORHEXIDINE GLUCONATE 2 % 1 PACK (2 CLOTHS) TOP SCH (04:00)
[2016-05-18 04:43] LABS: HEMATOCRIT 26.8 % (39.0-51.0); REVIEW FLAG FINAL
[2016-05-18] MEDS: MORPHINE SULFATE 4 MG/ML INJ IV PUSH PRN ×4 (05:05→23:49)
[2016-05-18 05:51] LABS: AUTOMATED NEUTROPHIL # 11.3 TH/MM3 (1.8-7.7); BASOPHIL % 0.1 % (0.0-2.0); HEMATOCRIT 27.1 % (39.0-51.0); HEMO FLAGS DIFF FINAL; LYMPH % 10.4 % (9.0-44.0); LYMPHOCYTE # 1.4 TH/MM3 (1.0-4.8); MEAN CELL VOLUME 84.4 FL (80.0-100.0); MEAN CORPUSCULAR HEMOGLOBIN 27.6 PG (27.0-34.0); MEAN CORPUSCULAR HGB CONC 32.7 % (32.0-36.0); MONO % 5.8 % (0.0-8.0); NEUT % 83.7 % (16.0-70.0); PLATELET COUNT 239 TH/MM3 (150-450); RED BLOOD COUNT 3.21 MIL/MM3 (4.50-5.90); RED CELL DISTRIBUTION WIDTH 16.3 % (11.6-17.2); WHITE BLOOD COUNT 13.5 TH/MM3 (4.0-11.0)
[2016-05-18] MEDS: PANTOPRAZOLE INJ 80 MG in SODIUM CHLORIDE 0.9% INJ 100 ML IV SCH (06:01)
[2016-05-18 06:09] LABS: BICARBONATE 22.7 MEQ/L (21.0-32.0); MAGNESIUM 1.8 MG/DL (1.5-2.5); POTASSIUM 3.9 MEQ/L (3.5-5.1)
--- NOTE | 2016-05-18 09:38 | HHI.CCPN ---
Subjective Remarks/Hospital Course This is a 71-year-old male who presents to the emergency department with a history of metastatic renal cell carcinoma who reportedly noticed some bright red blood from his rectum several days ago. Last night he was so weak he fell next to his bed and he wasn't able to get up until this morning. He says he feels generally weak, fatigued, and has difficulty exerting himself. He denies any pain. As far as his cancer he understands that he has terminal cancer. He wants to be aggressive regarding his anemia and he wants to try to feel better but he would not want CPR or intubation in the hospital, and would not want excessive measures if he were to in the hospital. He agrees his goals are consistent with a DO NOT RESUSCITATE order. Patient was in SVT on arrival in the ER however converted spontaneously to sinus rhythm. 3 units PRBCs ordered by ER physician and he is to receive Kcentra as he is on Eliquis for anticoagulation. 05/17 Patient is lying in bed in NAD. s/p transfusion 4u PRBC since arrival. Hgb 8.3 this morning. On Levophed 11 mics BP 107/59. On Protonix drip. 05/18 Patient s/p transfusion 1u PRBC last night for Hgb 7.7 repeat Hgb 8.8 this morning. Levophed down to 5 mics. Remains on Protonix drip. Objective Vital Signs Date Time Temp Pulse Resp B/P Pulse Ox O2 Delivery O2 Flow Rate FiO2 05/18/16 08:43 93 05/18/16 06:00 58 05/18/16 04:00 97.8 12 99/64 05/17/16 18:59 Nasal Cannula 2.00 Intake and Output 05/17/16 05/17/16 05/18/16 08:00 16:00 00:00 Intake Total 1542 ml 1870 ml 2837 ml Output Total 50 ml 425 ml 425 ml Balance 1492 ml 1445 ml 2412 ml Result Diagram: 05/18/16 0515 05/18/16 0515 Other Results Laboratory Tests Test 05/17/16 05/17/16 05/18/16 05/18/16 14:20 21:00 03:15 05:15 Hemoglobin 8.1 GM/DL 7.7 GM/DL 8.8 GM/DL 8.8 GM/DL Hematocrit 24.2 % 23.8 % 26.8 % 27.1 % White Blood Count 13.5 TH/MM3 Red Blood Count 3.21 MIL/MM3 Mean Corpuscular Volume 84.4 FL Mean Corpuscular Hemoglobin 27.6 PG Mean Corpuscular Hemoglobin 32.7 % Concent Red Cell Distribution Width 16.3 % Platelet Count 239 TH/MM3 Mean Platelet Volume 7.6 FL Neutrophils (%) (Auto) 83.7 % Lymphocytes (%) (Auto) 10.4 % Monocytes (%) (Auto) 5.8 % Eosinophils (%) (Auto) 0.0 % Basophils (%) (Auto) 0.1 % Neutrophils # (Auto) 11.3 TH/MM3 Lymphocytes # (Auto) 1.4 TH/MM3 Monocytes # (Auto) 0.8 TH/MM3 Eosinophils # (Auto) 0.0 TH/MM3 Basophils # (Auto) 0.0 TH/MM3 CBC Comment DIFF FINAL Differential Comment Sodium Level 148 MEQ/L Potassium Level 3.9 MEQ/L Chloride Level 119 MEQ/L Carbon Dioxide Level 22.7 MEQ/L Anion Gap 6 MEQ/L Blood Urea Nitrogen 37 MG/DL Creatinine 0.60 MG/DL Estimat Glomerular Filtration 161 ML/MIN Rate Random Glucose 116 MG/DL Calcium Level 8.0 MG/DL Phosphorus Level 2.3 MG/DL Magnesium Level 1.8 MG/DL Imaging Last Impressions Head CT 05/16/16 0000 Signed Impressions: Service Date/Time: May 14:45 - CONCLUSION: Stable examination. Antione Coy MD Chest X-Ray 05/16/16 0000 Signed Impressions: Service Date/Time: May 21:25 - CONCLUSION: Line in place and no pneumothorax. Cat Hwang MD Objective Remarks Narrative GENERAL: Cachectic, chronically ill-appearing SKIN: Pale HEAD: Atraumatic. Normocephalic. EYES: Pupils equal and round. No injection or drainage. Pallor present, no icterus ENT: Dry mucous membranes NECK: Trachea midline. CARDIOVASCULAR: Regular rate and rhythm. No murmur appreciated. RESPIRATORY: Clear to auscultation. Breath sounds equal bilaterally. GASTROINTESTINAL: Abdomen soft, non-tender, nondistended. MUSCULOSKELETAL: No obvious deformities. NEUROLOGICAL: Awake and alert. No obvious cranial nerve deficits. Moving all extremities. PSYCHIATRIC: Appropriate mood and affect; insight and judgment normal. A/P Assessment and Plan 71-year-old male with: Rectal bleeding Hemorrhagic shock Acute blood loss anemia SVT (converted to sinus tachycardia spontaneously) Metastatic renal cancer with numerous pulmonary metastasis status post palliative chemotherapy Failure to thrive Protein calorie malnutrition Plan: Neuro: Monitor neuro status. Pain medications as needed. CV: Patient was in SVT on arrival to the ER and converted spontaneously. Continue to wean off Levophed keep MAP>65mmHg. Lactic acid resolved On stress dose steroids- HC 50mg IV Q6 Pulm: Continue with oxygen keep sat >92% GI/liver: Start clear liquid diet, GI is following s/p transfusion 4u PRBC since arrival. Given additional 1u PRBC last night. Renal/: Monitor renal function, I/O's, electrolytes replacement per protocol. d/c IVF and diurese with Bumex 1mg x1 Heme onc: Patient was on Eliquis. s/p Kcentra for reversal. Oncology consulted in view of metastatic renal cell cancer who appears to be failing palliative chemotherapy. Monitor CBC transfuse if Hgb < 8. ID: Continue Rocephin for UTI. Monitor for signs of infections ( Fever, WBC) Follow up on urine cx Endo: SSI for glycemic control if needed. Prophylaxis: PPI/SCDs Patient has elected to be DNR status however wishes to continue other aggressive measures including blood transfusions. Palliative care is following. Level 3 Sydni Barraza MD May 18, 2016 09:38
[2016-05-18] MEDS ORDERED: BUMETANIDE INJ 1 MG/4 ML VIAL IV PUSH ONE (09:45)
--- NOTE | 2016-05-18 10:25 | PD.ONC.PN ---
Subjective Subjective Remarks Afebrile overnight. Pt resting in bed awake in no distress. Per RN he has had 3 dark BM's overnight and 1 this am. He is on Levophed for BP support. The pt endorses some abdominal pain. No SOB. Objective Data Date Time Temp Pulse Resp B/P Pulse Ox O2 Delivery O2 Flow Rate FiO2 05/18/16 08:43 93 05/18/16 06:00 58 05/18/16 04:00 59 05/18/16 04:00 97.8 59 12 99/64 95 05/18/16 02:00 59 05/18/16 00:00 97.6 60 15 102/64 94 05/18/16 00:00 60 05/17/16 23:30 97.6 59 15 102/61 95 05/17/16 22:00 67 05/17/16 20:00 97.5 64 16 89/57 99 05/17/16 20:00 64 05/17/16 18:59 99 Nasal Cannula 2.00 05/17/16 18:00 73 05/17/16 16:00 64 05/17/16 16:00 98.6 65 14 94/57 97 05/17/16 14:00 65 05/17/16 12:00 98.6 68 15 86/59 98 05/17/16 12:00 68 05/17/16 11:45 96 Nasal Cannula 2.00 05/18/16 05/18/16 05/18/16 07:00 15:00 23:00 Intake Total 934 ml Output Total 400 ml Balance 534 ml Result Diagram: 05/18/16 0515 05/18/16 0515 Laboratory Results Laboratory Tests Test 05/17/16 05/17/16 05/18/16 05/18/16 14:20 21:00 03:15 05:15 Hemoglobin 8.1 GM/DL 7.7 GM/DL 8.8 GM/DL 8.8 GM/DL Hematocrit 24.2 % 23.8 % 26.8 % 27.1 % White Blood Count 13.5 TH/MM3 Red Blood Count 3.21 MIL/MM3 Mean Corpuscular Volume 84.4 FL Mean Corpuscular Hemoglobin 27.6 PG Mean Corpuscular Hemoglobin 32.7 % Concent Red Cell Distribution Width 16.3 % Platelet Count 239 TH/MM3 Mean Platelet Volume 7.6 FL Neutrophils (%) (Auto) 83.7 % Lymphocytes (%) (Auto) 10.4 % Monocytes (%) (Auto) 5.8 % Eosinophils (%) (Auto) 0.0 % Basophils (%) (Auto) 0.1 % Neutrophils # (Auto) 11.3 TH/MM3 Lymphocytes # (Auto) 1.4 TH/MM3 Monocytes # (Auto) 0.8 TH/MM3 Eosinophils # (Auto) 0.0 TH/MM3 Basophils # (Auto) 0.0 TH/MM3 CBC Comment DIFF FINAL Differential Comment Sodium Level 148 MEQ/L Potassium Level 3.9 MEQ/L Chloride Level 119 MEQ/L Carbon Dioxide Level 22.7 MEQ/L Anion Gap 6 MEQ/L Blood Urea Nitrogen 37 MG/DL Creatinine 0.60 MG/DL Estimat Glomerular Filtration 161 ML/MIN Rate Random Glucose 116 MG/DL Calcium Level 8.0 MG/DL Phosphorus Level 2.3 MG/DL Magnesium Level 1.8 MG/DL Culture Results Microbiology Date/Time Procedure Status Source Growth 05/17/16 05:55 Urine Culture Received Urine Random Urine Pending Administered Medications Medications (Trade) Dose Ordered Sig/Twan Route PRN Reason Start Time Stop Time Status Last Admin Dose Admin Pantoprazole Sodium/Sodium Chloride (Protonix Inj/NS Inj) 100 ml @ 10 mls/hr Q10H IV 05/16/16 17:30 05/18/16 06:01 Chlorhexidine Gluconate (Chlorhexidine 2% Cloth) 3 pack Taper DAILY@04 TOP 05/17/16 04:00 05/13/17 03:59 05/16/16 22:05 Chlorhexidine Gluconate (Chlorhexidine 2% Cloth) 3 pack UNSCH PRN [facility] 05/16/16 16:45 05/16/16 23:28 Hydrocortisone Sodium Succinate 50 mg 50 mg Q6HR IV PUSH 05/16/16 18:00 05/18/16 05:04 Norepinephrine Bitartrate 250 ml @ 0 mls/hr TITRATE IV 05/16/16 20:00 05/17/16 21:18 Potassium Chloride (KCl 40 Meq Premix Inj) 100 ml @ 50 mls/hr Q2H PRN IV For Potassium 2.8 - 3.2 mEq/L 05/17/16 00:45 05/17/16 02:19 Morphine Sulfate 2 mg 2 mg Q2H PRN IV PUSH AGITATION 05/17/16 03:00 05/18/16 10:09 Ceftriaxone Sodium/Sodium Chloride (Rocephin Inj/NS Inj) 100 ml @ 200 mls/hr Q24H IV 05/17/16 12:00 05/17/16 12:33 Objective Remarks GENERAL: Cachetic older male lying in bed in no distress. SKIN: Warm and dry. HEAD: Normocephalic. EYES: No injection or drainage. NECK: Supple, trachea midline. CARDIOVASCULAR: +S1/S2. RESPIRATORY: Lungs clear throughout. GASTROINTESTINAL: Mild tenderness. Non distended. EXTREMITIES: No edema. NEUROLOGICAL: Moves all extremities. Normal speech. PSYCHIATRIC: Withdrawn, flat affect. Assessment/Plan Problem List: (1) Metastatic renal cell carcinoma Status: Acute Plan: -- He has rapidly progressed on three liners of palliative systemic therapy -- Multiple pulmonary mets -- Recommend Hospice. -- Very poor prognosis Hx/Workup: Pt was diagnosed a little over 1 year ago with metastatic renal cell carcinoma. He failed three lines of therapy including Votrient, Avastin and Nivolumab. He was last seen in the clinic in February 2016 where he was recommended Hospice. The patient declined at that time and chose to attempt to care for himself at home. (2) GI bleed Status: Acute Assessment 71 y/o male with a history of metastatic renal cell carcinoma admitted for hematochezia, hemoptysis and failure to thrive. Plan 1. Continue supportive care. Unfortunately the patient has a very poor prognosis but has not been open to speaking with Hospice. 2. Transfuse for Hgb less than 7.5 Attending Statement The exam, history, and the medical decision-making described in the above note were completed with the assistance of the mid-level provider. I reviewed and agree with the findings presented. I attest that I had a [id number] encounter with the patient on the same day, and personally performed and documented my assessment and findings in the medical record. Patient seen and examined, metastatic renal cell carcinoma, progressive on multiple lines of palliative systemic therapy. Continues to have melanotic stools and hemoptysis. He is approaching the end of his life, I talked to him again about best supportive care and hospice. At today's visit he engages much more and appears to be agreeable to go on hospice. He would however like to wait until Friday. I suggested he consider transfer to the hospice care center. He seems at this time to be agreeable to transfer to hospice care center on Friday. Problem Qualifiers (1) GI bleed: Qualified Code: K92.2 - Gastrointestinal hemorrhage, unspecified gastrointestinal hemorrhage type Rosanna Pope May 18, 2016 10:25 Miki Gray MD May 18, 2016 16:19
[2016-05-18] MEDS: NOREPINEPHRINE-DEXTROSE DRIP 250 ML IV SCH (11:47)
[2016-05-18] MEDS: cefTRIAXone INJ 1,000 MG in SODIUM CHLORIDE 0.9% INJ 100 ML IV SCH (11:47)
[2016-05-18] MEDS: SODIUM CHLORIDE 0.9% FLUSH 5 ML FLUSH IV FLUSH SCH ×2 (11:48→23:47)
--- NOTE | 2016-05-18 12:27 | HHI.GIFU ---
Subjective Remarks Resting in bed. Has passed dark stool, no vomiting. Family at bedside. GI was asked to see patient again for drop in Hgb. D/W patient and family possible evaluation with endoscopy. They report that they would definitely not want to pursue a colonoscopy and would consider EGD but only after speaking to Dr. Gray. (Dolores Wagoner) Objective Vitals I&O Vital Signs Date Time Temp Pulse Resp B/P Pulse Ox O2 Delivery O2 Flow Rate FiO2 05/18/16 08:43 93 05/18/16 06:00 58 05/18/16 04:00 59 05/18/16 04:00 97.8 59 12 99/64 95 05/18/16 02:00 59 05/18/16 00:00 97.6 60 15 102/64 94 05/18/16 00:00 60 05/17/16 23:30 97.6 59 15 102/61 95 05/17/16 22:00 67 05/17/16 20:00 97.5 64 16 89/57 99 05/17/16 20:00 64 05/17/16 18:59 99 Nasal Cannula 2.00 05/17/16 18:00 73 05/17/16 16:00 64 05/17/16 16:00 98.6 65 14 94/57 97 05/17/16 14:00 65 I/O 05/17/16 05/17/16 05/17/16 05/18/16 05/18/16 05/18/16 07:00 15:00 23:00 07:00 15:00 23:00 Intake Total 1542 ml 1870 ml 2837 ml 934 ml Output Total 50 ml 425 ml 425 ml 400 ml Balance 1492 ml 1445 ml 2412 ml 534 ml Intake Oral 0 ml 0 ml IV Total 1542 ml 1870 ml 2837 ml 934 ml Output Urine Total 50 ml 425 ml 425 ml 400 ml # Bowel Movements 0 0 Laboratory Laboratory Tests Test 05/17/16 05/17/16 05/18/16 05/18/16 14:20 21:00 03:15 05:15 Hemoglobin 8.1 7.7 8.8 8.8 Hematocrit 24.2 23.8 26.8 27.1 White Blood Count 13.5 Red Blood Count 3.21 Mean Corpuscular Volume 84.4 Mean Corpuscular Hemoglobin 27.6 Mean Corpuscular Hemoglobin 32.7 Concent Red Cell Distribution Width 16.3 Platelet Count 239 Mean Platelet Volume 7.6 Neutrophils (%) (Auto) 83.7 Lymphocytes (%) (Auto) 10.4 Monocytes (%) (Auto) 5.8 Eosinophils (%) (Auto) 0.0 Basophils (%) (Auto) 0.1 Neutrophils # (Auto) 11.3 Lymphocytes # (Auto) 1.4 Monocytes # (Auto) 0.8 Eosinophils # (Auto) 0.0 Basophils # (Auto) 0.0 CBC Comment DIFF FINAL Differential Comment Sodium Level 148 Potassium Level 3.9 Chloride Level 119 Carbon Dioxide Level 22.7 Anion Gap 6 Blood Urea Nitrogen 37 Creatinine 0.60 Estimat Glomerular Filtration 161 Rate Random Glucose 116 Calcium Level 8.0 Phosphorus Level 2.3 Magnesium Level 1.8 Date/Time Procedure Status Source Growth 05/17/16 05:55 Urine Culture Received Urine Random Urine Pending Imaging Last Impressions Head CT 05/16/16 0000 Signed Impressions: Service Date/Time: May 14:45 - CONCLUSION: Stable examination. Antione Coy MD Chest X-Ray 05/16/16 0000 Signed Impressions: Service Date/Time: May 21:25 - CONCLUSION: Line in place and no pneumothorax. Cat Hwang MD Physical Exam HEENT: Normocephalic; atraumatic; no jaundice. CHEST: CTA CARDIAC: RRR ABDOMEN: Soft, nondistended, nontender; no hepatosplenomegaly; bowel sounds are present in all four quadrants. EXTREMITIES: No clubbing, cyanosis, or edema. SKIN: Normal; no rash; no jaundice. D[employer] SERVICE ENGINEER: No focal deficits; alert and oriented times three. (Dolores Wagoner [employer]) Assessment and Plan Plan ASSESSMENT: - GI bleed with hx of rectal bleeding few days ago, one episode of hematemesis . Pt has passed dark stool, but no rohith red bleeding. S/P 6 units of PRBC. 8.8/27.1. D/W patient and family EGD/Colonoscopy. They state that he definitely does not wish to pursue the colonoscopy, they are thinking about possible EGD, but does not want to make decision prior to speaking to Dr. Gray. Protonix Gtt. NPO. Eliquis on hold. - Anemia, acute blood loss. S/P 6 units of PRBC. HH 8.8/27.1. - Metastatic RCC with dz to lungs. Oncology following, progression despite three courses of palliative systemic therapy, poor prognosis, recommend Hospice, family and patient has not been open to Hospice in past. Palliative care consulted. Plan: - Clear liquids - Change protonix to BID dosing - Monitor HH - Transfuse as necessary - Await palliative care evaluation. - Hold Eliquis - Consider EGD if patient and family decide on aggressive care after palliative care consult - Supportive care - Further recommendations to follow based on results of above - Patient seen and examined by Dr. Thornton and myself and this note is written on his behalf. (Dolores Wagoner) Physician Comments Patient seen and examined Agree with above Continue with current supportive care Monitor labs Case discussed with oncology the goal at this point is for comfort care And at this point we don't see going forward with endoscopy also knowing that he has refused endoscopy We will sign off (Clement Thornton MD) Dolores Wagoner May 18, 2016 12:27 Clement Thornton MD May 18, 2016 18:40
[2016-05-18] MEDS: PANTOPRAZOLE SODIUM 40 MG VIAL IV PUSH SCH (23:48)
[2016-05-19] VITALS (11 sets, daily range): BP systolic 80–101; BP diastolic 53–60; PULSE 63–82; RESP 15–17; TEMP 97.5–98.3; O2SAT 93–96
[2016-05-19] MEDS: CHLORHEXIDINE GLUCONATE 2 % 1 PACK (2 CLOTHS) TOP SCH (04:00)
[2016-05-19 04:29] LABS: AUTOMATED NEUTROPHIL # 9.5 TH/MM3 (1.8-7.7); BASOPHIL % 0.4 % (0.0-2.0); HEMATOCRIT 28.2 % (39.0-51.0); HEMO FLAGS DIFF FINAL; LYMPH % 7.7 % (9.0-44.0); LYMPHOCYTE # 0.8 TH/MM3 (1.0-4.8); MEAN CELL VOLUME 85.4 FL (80.0-100.0); MEAN CORPUSCULAR HEMOGLOBIN 27.6 PG (27.0-34.0); MEAN CORPUSCULAR HGB CONC 32.3 % (32.0-36.0); MONO % 4.6 % (0.0-8.0); NEUT % 87.3 % (16.0-70.0); PLATELET COUNT 203 TH/MM3 (150-450); RED BLOOD COUNT 3.31 MIL/MM3 (4.50-5.90); RED CELL DISTRIBUTION WIDTH 16.8 % (11.6-17.2); WHITE BLOOD COUNT 10.9 TH/MM3 (4.0-11.0)
[2016-05-19 05:03] LABS: BICARBONATE 19.3 MEQ/L (21.0-32.0); MAGNESIUM 1.7 MG/DL (1.5-2.5); POTASSIUM 3.8 MEQ/L (3.5-5.1)
[2016-05-19] MEDS: HYDROCORTISONE SOD SUCCINATE 100 MG VIAL IV PUSH SCH ×3 (05:30→16:32)
--- NOTE | 2016-05-19 08:47 | HHI.CCPN ---
Subjective Remarks/Hospital Course This is a 71-year-old male who presents to the emergency department with a history of metastatic renal cell carcinoma who reportedly noticed some bright red blood from his rectum several days ago. Last night he was so weak he fell next to his bed and he wasn't able to get up until this morning. He says he feels generally weak, fatigued, and has difficulty exerting himself. He denies any pain. As far as his cancer he understands that he has terminal cancer. He wants to be aggressive regarding his anemia and he wants to try to feel better but he would not want CPR or intubation in the hospital, and would not want excessive measures if he were to in the hospital. He agrees his goals are consistent with a DO NOT RESUSCITATE order. Patient was in SVT on arrival in the ER however converted spontaneously to sinus rhythm. 3 units PRBCs ordered by ER physician and he is to receive Kcentra as he is on Eliquis for anticoagulation. 05/17 Patient is lying in bed in NAD. s/p transfusion 4u PRBC since arrival. Hgb 8.3 this morning. On Levophed 11 mics BP 107/59. On Protonix drip. 05/18 Patient s/p transfusion 1u PRBC last night for Hgb 7.7 repeat Hgb 8.8 this morning. Levophed down to 5 mics. Remains on Protonix drip. 05/19 No acute events overnight. Off Levophed. Afebrile. H/H stable. Objective Vital Signs Date Time Temp Pulse Resp B/P Pulse Ox O2 Delivery O2 Flow Rate FiO2 05/19/16 07:53 96 05/19/16 06:00 68 05/19/16 04:00 97.5 17 94/60 05/18/16 19:53 21 05/17/16 18:59 Nasal Cannula 2.00 Intake and Output 05/18/16 05/18/16 05/19/16 08:00 16:00 00:00 Intake Total 934 ml 2100 ml 1069 ml Output Total 400 ml 1100 ml 350 ml Balance 534 ml 1000 ml 719 ml Result Diagram: 05/19/16 0410 05/19/16 0410 Other Results Laboratory Tests Test 05/19/16 04:10 White Blood Count 10.9 TH/MM3 Red Blood Count 3.31 MIL/MM3 Hemoglobin 9.1 GM/DL Hematocrit 28.2 % Mean Corpuscular Volume 85.4 FL Mean Corpuscular Hemoglobin 27.6 PG Mean Corpuscular Hemoglobin 32.3 % Concent Red Cell Distribution Width 16.8 % Platelet Count 203 TH/MM3 Mean Platelet Volume 7.5 FL Neutrophils (%) (Auto) 87.3 % Lymphocytes (%) (Auto) 7.7 % Monocytes (%) (Auto) 4.6 % Eosinophils (%) (Auto) 0.0 % Basophils (%) (Auto) 0.4 % Neutrophils # (Auto) 9.5 TH/MM3 Lymphocytes # (Auto) 0.8 TH/MM3 Monocytes # (Auto) 0.5 TH/MM3 Eosinophils # (Auto) 0.0 TH/MM3 Basophils # (Auto) 0.0 TH/MM3 CBC Comment DIFF FINAL Differential Comment Sodium Level 148 MEQ/L Potassium Level 3.8 MEQ/L Chloride Level 118 MEQ/L Carbon Dioxide Level 19.3 MEQ/L Anion Gap 11 MEQ/L Blood Urea Nitrogen 31 MG/DL Creatinine 0.69 MG/DL Estimat Glomerular Filtration 137 ML/MIN Rate Random Glucose 111 MG/DL Calcium Level 8.0 MG/DL Phosphorus Level 2.1 MG/DL Magnesium Level 1.7 MG/DL Imaging Last Impressions Head CT 05/16/16 0000 Signed Impressions: Service Date/Time: May 14:45 - CONCLUSION: Stable examination. Antione Coy MD Chest X-Ray 05/16/16 0000 Signed Impressions: Service Date/Time: May 21:25 - CONCLUSION: Line in place and no pneumothorax. Cat Hwang MD Objective Remarks Narrative GENERAL: Cachectic, chronically ill-appearing SKIN: Pale HEAD: Atraumatic. Normocephalic. EYES: Pupils equal and round. No injection or drainage. Pallor present, no icterus ENT: Dry mucous membranes NECK: Trachea midline. CARDIOVASCULAR: Regular rate and rhythm. No murmur appreciated. RESPIRATORY: Clear to auscultation. Breath sounds equal bilaterally. GASTROINTESTINAL: Abdomen soft, non-tender, nondistended. MUSCULOSKELETAL: No obvious deformities. NEUROLOGICAL: Awake and alert. No obvious cranial nerve deficits. Moving all extremities. PSYCHIATRIC: Appropriate mood and affect; insight and judgment normal. A/P Assessment and Plan 71-year-old male with: s/p Rectal bleeding Acute blood loss anemia SVT (converted to sinus tachycardia spontaneously) Metastatic renal cancer with numerous pulmonary metastasis status post palliative chemotherapy Failure to thrive Protein calorie malnutrition Plan: Neuro: Monitor neuro status. Pain medications as needed. CV: Patient was in SVT on arrival to the ER and converted spontaneously. Off Levophed keep MAP>65mmHg. Lactic acid resolved Taper steroids- decrease HC 50mg IV Q12 Pulm: Oxygen PRN keep sat >92% GI/liver: On clear liquid diet, GI bruce off. EGD held unless patient is actively bleeding. Renal/: Monitor renal function, I/O's, electrolytes replacement per protocol. On D5WNS@75ml/hr Heme onc: Patient was on Eliquis. s/p Kcentra for reversal. Oncology is following Monitor CBC transfuse if Hgb < 8. ID: Continue Rocephin for UTI. Monitor for signs of infections ( Fever, WBC) Follow up on urine cx Endo: SSI for glycemic control if needed. Prophylaxis: PPI/SCDs Code status: No code DNR Palliative care is following. Will sign off and transfer care to [facility] Level 2 Sydni Barraza MD May 19, 2016 08:47
[2016-05-19] MEDS: DEXT 5%-NACL 0.9% 1000 ML INJ 1,000 ML IV SCH (09:00)
[2016-05-19] MEDS: SODIUM CHLORIDE 0.9% FLUSH 5 ML FLUSH IV FLUSH SCH ×2 (16:31→21:00)
[2016-05-19] MEDS: PANTOPRAZOLE SODIUM 40 MG VIAL IV PUSH SCH (16:31)
[2016-05-19] MEDS: cefTRIAXone INJ 1,000 MG in SODIUM CHLORIDE 0.9% INJ 100 ML IV SCH (16:31)
[2016-05-19] MEDS: MORPHINE SULFATE 4 MG/ML INJ IV PUSH PRN (16:32)
[2016-05-20] VITALS (14 sets, daily range): BP systolic 93–114; BP diastolic 52–70; PULSE 63–80; RESP 13–25; TEMP 97.6–98.3; O2SAT 93–96
[2016-05-20] MEDS: HYDROCORTISONE SOD SUCCINATE 100 MG VIAL IV PUSH SCH ×5 (00:17→22:58)
[2016-05-20] MEDS: DEXT 5%-NACL 0.9% 1000 ML INJ 1,000 ML IV SCH ×3 (00:17→15:10)
[2016-05-20] MEDS: PANTOPRAZOLE SODIUM 40 MG VIAL IV PUSH SCH ×3 (00:18→22:58)
[2016-05-20] MEDS: CHLORHEXIDINE GLUCONATE 2 % 1 PACK (2 CLOTHS) TOP SCH (04:00)
[2016-05-20] MEDS: MORPHINE SULFATE 4 MG/ML INJ IV PUSH PRN ×6 (04:31→23:46)
[2016-05-20 04:54] LABS: AUTOMATED NEUTROPHIL # 8.6 TH/MM3 (1.8-7.7); BASOPHIL % 0.1 % (0.0-2.0); HEMATOCRIT 23.4 % (39.0-51.0); HEMO FLAGS DIFF FINAL; LYMPH % 7.6 % (9.0-44.0); LYMPHOCYTE # 0.8 TH/MM3 (1.0-4.8); MEAN CELL VOLUME 84.4 FL (80.0-100.0); MEAN CORPUSCULAR HEMOGLOBIN 27.8 PG (27.0-34.0); MEAN CORPUSCULAR HGB CONC 32.9 % (32.0-36.0); MONO % 7.3 % (0.0-8.0); PLATELET COUNT 188 TH/MM3 (150-450); RED BLOOD COUNT 2.78 MIL/MM3 (4.50-5.90); WHITE BLOOD COUNT 10.1 TH/MM3 (4.0-11.0)
[2016-05-20 05:22] LABS: BICARBONATE 21.3 MEQ/L (21.0-32.0); POTASSIUM 3.8 MEQ/L (3.5-5.1)
[2016-05-20] MEDS: cefTRIAXone INJ 1,000 MG in SODIUM CHLORIDE 0.9% INJ 100 ML IV SCH (12:27)
[2016-05-20] MEDS: SODIUM CHLORIDE 0.9% FLUSH 5 ML FLUSH IV FLUSH SCH ×2 (12:27→19:34)
--- NOTE | 2016-05-20 14:43 | HHI.PR ---
Subjective Remarks The patient was resting in bed comfortably. He says that his pain was an 8 out of 10 in severity and he wanted some morphine. He also wanted an orange. He said he will talk to people about hospice tomorrow. He said he was breathing well. Discussed with nursing. Objective Vitals Vital Signs Date Time Temp Pulse Resp B/P Pulse Ox O2 Delivery O2 Flow Rate FiO2 05/20/16 12:00 71 05/20/16 11:43 94 21 05/20/16 10:00 74 05/20/16 08:00 70 05/20/16 06:00 63 05/20/16 04:00 97.9 68 13 100/65 94 05/20/16 04:00 68 05/20/16 02:00 73 05/20/16 00:00 97.6 71 25 93/67 94 05/20/16 00:00 71 05/19/16 22:00 74 05/19/16 20:24 94 21 05/19/16 20:00 82 05/19/16 20:00 98.3 82 16 98/54 93 05/19/16 16:00 97.5 74 16 94/53 95 I/O 05/19/16 05/19/16 05/19/16 05/20/16 05/20/16 05/20/16 07:00 15:00 23:00 07:00 15:00 23:00 Intake Total 1997 ml 1100 ml 504 ml 824 ml Output Total 550 ml 1800 ml 275 ml 50 ml Balance 1447 ml -700 ml 229 ml 774 ml Intake Oral 600 ml 120 ml 240 ml IV Total 1397 ml 945 ml 384 ml 584 ml Tube Feeding 155 ml Output Urine Total 550 ml 1800 ml 275 ml 50 ml # Voids 1 # Bowel Movements 1 0 1 Result Diagram: 05/20/16 0430 05/20/16 0430 Imaging Last Impressions Head CT 05/16/16 0000 Signed Impressions: Service Date/Time: May 14:45 - CONCLUSION: Stable examination. Antione Coy MD Chest X-Ray 05/16/16 0000 Signed Impressions: Service Date/Time: May 21:25 - CONCLUSION: Line in place and no pneumothorax. K. Claudio Hwang MD Objective Remarks GENERAL: Cachectic, chronically ill-appearing HEAD: Atraumatic. Normocephalic. EYES: Pupils equal and round. No injection or drainage. Pallor present, no icterus ENT: Dry mucous membranes NECK: Trachea midline. CARDIOVASCULAR: Regular rate and rhythm. No murmur appreciated. RESPIRATORY: Clear to auscultation. Breath sounds equal bilaterally. GASTROINTESTINAL: Abdomen soft, non-tender, nondistended. MUSCULOSKELETAL: No obvious deformities. NEUROLOGICAL: Awake and alert. No obvious cranial nerve deficits. Moving all extremities. PSYCHIATRIC: Appropriate mood and affect; insight and judgment normal. Medications and IVs Current Medications Medications (Trade) Dose Ordered Sig/Twan Route Start Time Stop Time Status Last Admin (NS Flush) 2 ml UNSCH PRN IV FLUSH 05/16/16 16:45 (NS Flush) 2 ml BID IV FLUSH 05/16/16 21:00 05/20/16 12:27 (Zofran Inj) 4 mg Q6H PRN IV 05/16/16 16:45 Miscellaneous Information 1 Q361D XX 05/16/16 16:45 (Chlorhexidine 2% Cloth) 3 pack Taper DAILY@04 TOP 05/17/16 04:00 05/13/17 03:59 05/20/16 04:00 (Chlorhexidine 2% Cloth) 3 pack UNSCH PRN TOP 05/16/16 16:45 05/16/16 23:28 Hydrocortisone Sodium Succinate 50 mg 50 mg Q6HR IV PUSH 05/16/16 18:00 05/20/16 12:27 (Levophed-Dextrose Drip) 250 ml @ 0 mls/hr TITRATE IV 05/16/16 20:00 05/18/16 11:47 Terbutaline Sulfate 1 mg 1 mg UNSCH PRN SQ 05/16/16 19:45 Potassium Chloride 100 ml @ 50 mls/hr Q2H PRN IV 05/17/16 00:45 05/17/16 02:19 (KCl 20 Meq Premix Inj) 100 ml @ 50 mls/hr Q2H PRN IV 05/17/16 00:45 Potassium Chloride 40 meq 40 meq UNSCH PRN PO/TUBE 05/17/16 00:45 Potassium Chloride 100 ml @ 25 mls/hr UNSCH PRN IV 05/17/16 00:45 Potassium Chloride 100 ml @ 50 mls/hr Q2H PRN IV 05/17/16 00:45 (Magnesium Sulfate Inj/NS Inj) 100 ml @ 50 mls/hr UNSCH PRN IV 05/17/16 00:45 Magnesium Oxide 800 mg 800 mg UNSCH PRN PO 05/17/16 00:45 (Magnesium Sulfate Inj/NS Inj) 100 ml @ 50 mls/hr UNSCH PRN IV 05/17/16 00:45 Potassium Phosphate 2000 mg 2,000 mg Q4H PRN PO 05/17/16 00:45 (Sodium Phosphate Inj/NS 250 ml Inj) 250 ml @ 42 mls/hr UNSCH PRN IV 05/17/16 00:45 (KCl 40 Meq/30 ml Liq) 40 meq UNSCH PRN PO/TUBE 05/17/16 00:45 Potassium Phosphate 2000 mg 2,000 mg UNSCH PRN PO/TUBE 05/17/16 00:45 (Potassium Phosphate Inj/NS 250 ml Inj) 260 ml @ 42 mls/hr UNSCH PRN IV 05/17/16 00:45 Morphine Sulfate 2 mg 2 mg Q2H PRN IV PUSH 05/17/16 03:00 05/20/16 12:00 (Rocephin Inj/NS Inj) 100 ml @ 200 mls/hr Q24H IV 05/17/16 12:00 05/20/16 12:27 Pantoprazole Sodium 40 mg 40 mg Q12H IV PUSH 05/18/16 13:00 05/20/16 12:27 (D5W-NS 1000 ml Inj) 1,000 ml @ 75 mls/hr [id number] IV 05/19/16 09:00 05/20/16 12:27 A/P Assessment and Plan Acute blood loss anemia S/t GIB. GI consult appreciated. Patient was on Eliquis. S/p Kcentra for reversal. - The patient has declined further evaluation with endoscopy. - supportive measures. - follow CBC and transfuse as needed. Metastatic renal cancer With numerous pulmonary metastasis. Has failed three lines of therapy in the past. Oncology consult appreciated. - pt considering hospice. Follow up with palliative care. - pain control with a bowel regimen. Failure to thrive/ Protein calorie malnutrition S/t above. - encourage PO intake. Clear liquid diet for now. - palliative care following. SVT Patient was in SVT on arrival to the ER and converted spontaneously. Off Levophed. - telemetry. UTI Urine culture with no growth. - d/c ceftriaxone. Prophylaxis: PPI/SCDs Discharge Planning Possible transfer to hospice if agreeable. Clark Daugherty DO May 20, 2016 14:43
[2016-05-21] VITALS (10 sets, daily range): BP systolic 72–103; BP diastolic 56–88; PULSE 67–91; RESP 15–26; TEMP 98–98.5; O2SAT 92–96
[2016-05-21] MEDS: CHLORHEXIDINE GLUCONATE 2 % 1 PACK (2 CLOTHS) TOP SCH (04:00)
[2016-05-21 04:53] LABS: MEAN CELL VOLUME 86.3 FL (80.0-100.0); MEAN CORPUSCULAR HEMOGLOBIN 27.8 PG (27.0-34.0); MEAN CORPUSCULAR HGB CONC 32.2 % (32.0-36.0); PLATELET COUNT 190 TH/MM3 (150-450); RED BLOOD COUNT 2.67 MIL/MM3 (4.50-5.90); RED CELL DISTRIBUTION WIDTH 17.3 % (11.6-17.2); REVIEW FLAG FINAL; WHITE BLOOD COUNT 10.2 TH/MM3 (4.0-11.0)
[2016-05-21] MEDS: MORPHINE SULFATE 4 MG/ML INJ IV PUSH PRN ×3 (05:00→15:01)
[2016-05-21] MEDS: HYDROCORTISONE SOD SUCCINATE 100 MG VIAL IV PUSH SCH ×2 (05:03→15:01)
[2016-05-21] MEDS: DEXT 5%-NACL 0.9% 1000 ML INJ 1,000 ML IV SCH (05:03)
[2016-05-21 05:06] LABS: BICARBONATE 22.1 MEQ/L (21.0-32.0); MAGNESIUM 1.7 MG/DL (1.5-2.5); POTASSIUM 3.6 MEQ/L (3.5-5.1)
--- NOTE | 2016-05-21 08:11 | HHI.PR ---
Subjective Remarks In bed, appears ill, says he feels very rired, has sob, no chest pain . Denies n/v/d/c. Objective Vitals Vital Signs Date Time Temp Pulse Resp B/P Pulse Ox O2 Delivery O2 Flow Rate FiO2 05/21/16 06:00 91 05/21/16 04:00 98.5 88 26 103/63 92 05/21/16 04:00 88 05/21/16 02:00 72 05/21/16 00:00 98.0 67 15 101/62 93 05/21/16 00:00 67 05/20/16 23:00 93 21 05/20/16 22:00 64 05/20/16 20:00 80 05/20/16 20:00 98.3 80 24 99/52 94 05/20/16 18:00 73 05/20/16 16:00 98.1 64 17 112/70 93 05/20/16 16:00 77 05/20/16 14:00 78 05/20/16 12:00 71 05/20/16 12:00 98.0 66 14 114/61 96 05/20/16 11:43 94 21 05/20/16 10:00 74 I/O 05/20/16 05/20/16 05/20/16 05/21/16 05/21/16 05/21/16 07:00 15:00 23:00 07:00 15:00 23:00 Intake Total 824 ml 878 ml 689 ml 1234 ml Output Total 50 ml 420 ml 250 ml 250 ml Balance 774 ml 458 ml 439 ml 984 ml Intake Oral 240 ml 750 ml IV Total 584 ml 878 ml 689 ml 484 ml Output Urine Total 50 ml 420 ml 250 ml 250 ml # Voids 1 1 # Bowel Movements 1 1 Result Diagram: 05/21/16 0333 05/21/16 0333 Imaging Last Impressions Head CT 05/16/16 0000 Signed Impressions: Service Date/Time: May 14:45 - CONCLUSION: Stable examination. Antione Coy MD Chest X-Ray 05/16/16 0000 Signed Impressions: Service Date/Time: May 21:25 - CONCLUSION: Line in place and no pneumothorax. K. Claudio Hwang MD Objective Remarks GENERAL: 71 yo male, cachectic, chronically ill-appearing with sob. SKIN: Pale. No echymoses. HEAD: Atraumatic. Normocephalic. EYES: Pupils equal and round. No injection or drainage. Pallor present, no icterus ENT: Dry mucous membranes NECK: Trachea midline. CARDIOVASCULAR: Regular rate and rhythm. No murmur appreciated. RESPIRATORY: Clear to auscultation. Breath sounds equal bilaterally. GASTROINTESTINAL: Abdomen soft, non-tender, nondistended. MUSCULOSKELETAL: No obvious deformities. NEUROLOGICAL: Awake and alert. No obvious cranial nerve deficits. Moving all extremities. PSYCHIATRIC: Appropriate mood and affect; insight and judgment normal. A/P Assessment and Plan Acute blood loss anemia S/t GIB. GI consult appreciated. Patient was on Eliquis. S/p Kcentra for reversal. The patient has declined further evaluation with endoscopy. Supportive measures. With SOB, transfusing 7th unit of blood 05/21. Follow CBC and transfuse as needed. Metastatic renal cancer With numerous pulmonary metastasis. Has failed three lines of therapy in the past. Oncology consult appreciated. Patient is considering hospice. Follow up with palliative care. Pain control with a bowel regimen. Failure to thrive/ Protein calorie malnutrition S/t above. Encourage PO intake. Clear liquid diet for now. Grout Machine Tender consult. Palliative care following. SVT Patient was in SVT on arrival to the ER and converted spontaneously. Off Levophed. Monitor on telemetry. UTI Urine culture with no growth. DC ceftriaxone. Prophylaxis: PPI/SCDs Discharge Planning Possible DC to hospice if agreeable. Joanna Cottrell MD May 21, 2016 08:11
--- NOTE | 2016-05-21 14:58 | HHI.DS ---
Discharge Summary Admission Date May 16, 2016 at 16:41 Discharge Date: May 21, 2016 Admitting Diagnosis gi bleed (1) GI bleed ICD Code: K92.2 Diagnosis: Principal (2) CHF, acute on chronic ICD Code: I50.9 Diagnosis: Secondary (3) Non-sustained ventricular tachycardia ICD Code: I47.2 Diagnosis: Secondary (4) Chronic systolic (congestive) heart failure ICD Code: I50.22 Diagnosis: Secondary (5) Cardiomyopathy ICD Code: I42.9 Diagnosis: Secondary (6) Renal mass, left ICD Code: N28.89 Diagnosis: Secondary (7) Cardiac arrhythmia ICD Code: I49.9 Diagnosis: Secondary (8) Hypotension ICD Code: I95.9 Diagnosis: Secondary (9) Near syncope ICD Code: R55 Diagnosis: Secondary (10) Atrial fibrillation ICD Code: I48.91 Diagnosis: Secondary (11) Anemia ICD Code: D64.9 Diagnosis: Principal (12) Coagulopathy ICD Code: D68.9 Diagnosis: Principal (13) Metastatic renal cell carcinoma ICD Code: C64.9 Diagnosis: Secondary (14) Pain ICD Code: R52 Diagnosis: Secondary Procedures none Brief History - From Admission This is a 71-year-old male who presents to the emergency department with a history of metastatic renal cell carcinoma who reportedly noticed some bright red blood from his rectum several days ago. Last night he was so weak he fell next to his bed and he wasn't able to get up until this morning. He says he feels generally weak, fatigued, and has difficulty exerting himself. He denies any pain. As far as his cancer he understands that he has terminal cancer. He wants to be aggressive regarding his anemia and he wants to try to feel better but he would not want CPR or intubation in the hospital, and would not want excessive measures if he were to in the hospital. He agrees his goals are consistent with a DO NOT RESUSCITATE order. Patient was in SVT on arrival in the ER however converted spontaneously to sinus rhythm. 3 units PRBCs ordered by ER physician and he is to receive Kcentra as he is on Eliquis for anticoagulation. History PFSH Past Medical History Hx Anticoagulant Therapy: Yes (BLOOD THINNER- Eliquis) Anemia: Yes Arthritis: No Asthma: No Autoimmune Disease: No Anxiety: No Depression: No Heart Rhythm Problems: Yes (afib) Cancer: Yes (left kidney with mets to the lungs) Cardiovascular Problems: Yes High Cholesterol: No Chemotherapy: Yes Chest Pain: Yes Congestive Heart Failure: Yes Diabetes: No Diminished Hearing: No Endocrine: No Genitourinary: Yes (hematuria, left kidney mass.) Hypertension: Yes (not on any meds) Immune Disorder: No Implanted Vascular Access Dvce: Yes Kidney Stones: No Musculoskeletal: No Neurologic: No Psychiatric: No Reproductive: No Respiratory: Yes Myocardial Infarction: No Radiation Therapy: No Renal Failure: No Seizures: No Sickle Cell Disease: No Sleep Apnea: No Thyroid Disease: No Past Surgical History Abdominal Surgery: No Cardiac Surgery: No Ear Surgery: No Endocrine Surgery: No Eye Surgery: No Genitourinary Surgery: Yes (URETHRAL SX 1969'S, POOR HISTORIAN POSSIBLE STENT FOR COLLAPSED URETHRA) Gynecologic Surgery: No Oral Surgery: No Thoracic Surgery: No Other Surgery: Yes (left kidney removed r/t cancer 06/2015) Social History Alcohol Use: No (denies current use) Tobacco Use: No (quit 1 year ago smoked cigs) Substance Use: No (+ hx, denies today) Allergies-Medications Allergies-Medications (Allergen,Severity, Reaction): Coded Allergies: No Known Allergies (Verified , 05/16/16) Reported Meds & Prescriptions Reported Meds & Active Scripts Active Reported Amiodarone (Amiodarone HCl) 200 Mg Tab 200 Mg PO DAILY Eliquis (Apixaban) 5 Mg Tab 5 Mg PO DAILY ROS Review of Systems Except as stated in HPI: all other systems reviewed are Neg CBC/BMP: 05/21/16 0333 05/21/16 0333 Significant Findings Laboratory Tests Test 05/19/16 05/20/16 05/21/16 04:10 04:30 03:33 Red Blood Count 3.31 MIL/MM3 2.78 MIL/MM3 2.67 MIL/MM3 (4.50-5.90) (4.50-5.90) (4.50-5.90) Hemoglobin 9.1 GM/DL 7.7 GM/DL 7.4 GM/DL (13.0-17.0) (13.0-17.0) (13.0-17.0) Hematocrit 28.2 % 23.4 % 23.0 % (39.0-51.0) (39.0-51.0) (39.0-51.0) Neutrophils (%) (Auto) 87.3 % 85.0 % (16.0-70.0) (16.0-70.0) Lymphocytes (%) (Auto) 7.7 % 7.6 % (9.0-44.0) (9.0-44.0) Neutrophils # (Auto) 9.5 TH/MM3 8.6 TH/MM3 (1.8-7.7) (1.8-7.7) Lymphocytes # (Auto) 0.8 TH/MM3 0.8 TH/MM3 (1.0-4.8) (1.0-4.8) Sodium Level 148 MEQ/L 148 MEQ/L 149 MEQ/L (136-145) (136-145) (136-145) Chloride Level 118 MEQ/L 118 MEQ/L 119 MEQ/L (98-107) (98-107) (98-107) Carbon Dioxide Level 19.3 MEQ/L (21.0-32.0) Blood Urea Nitrogen 31 MG/DL (7-18) 28 MG/DL (7-18) 23 MG/DL (7-18) Random Glucose 111 MG/DL 135 MG/DL 131 MG/DL (74-106) (74-106) (74-106) Calcium Level 8.0 MG/DL 7.9 MG/DL 8.0 MG/DL (8.5-10.1) (8.5-10.1) (8.5-10.1) Phosphorus Level 2.1 MG/DL 1.7 MG/DL (2.5-4.9) (2.5-4.9) Red Cell Distribution Width 17.3 % (11.6-17.2) Creatinine 0.58 MG/DL (0.60-1.30) Imaging Last Impressions Head CT 05/16/16 Signed Impressions: Service Date/Time: May 14:45 - CONCLUSION: Stable examination. Antione Coy MD Chest X-Ray 3/2/17 0000 Signed Impressions: Service Date/Time: May 21:25 - CONCLUSION: Line in place and no pneumothorax. Cat Hwang MD PE at Discharge GENERAL: 71 yo male, cachectic, chronically ill-appearing with sob. SKIN: Pale. No echymoses. HEAD: Atraumatic. Normocephalic. EYES: Pupils equal and round. No injection or drainage. Pallor present, no icterus ENT: Dry mucous membranes NECK: Trachea midline. CARDIOVASCULAR: Regular rate and rhythm. No murmur appreciated. RESPIRATORY: Clear to auscultation. Breath sounds equal bilaterally. GASTROINTESTINAL: Abdomen soft, non-tender, nondistended. MUSCULOSKELETAL: No obvious deformities. NEUROLOGICAL: Awake and alert. No obvious cranial nerve deficits. Moving all extremities. PSYCHIATRIC: Appropriate mood and affect; insight and judgment normal. Hospital Course Acute blood loss anemia S/t GIB. GI consult appreciated. Patient was on Eliquis. S/p Kcentra for reversal. The patient has declined further evaluation with endoscopy. Supportive measures. With SOB, transfusing 7th unit of blood 05/21. Follow CBC and transfuse as needed. Metastatic renal cancer With numerous pulmonary metastasis. Has failed three lines of therapy in the past. Oncology consult appreciated. Patient is considering hospice. Follow up with palliative care. Pain control with a bowel regimen. Failure to thrive/ Protein calorie malnutrition S/t above. Encourage PO intake. Clear liquid diet for now. Compensation Adjuster consult. Palliative care following. SVT Patient was in SVT on arrival to the ER and converted spontaneously. Off Levophed. Monitor on telemetry. UTI Urine culture with no growth. DC ceftriaxone. Prophylaxis: PPI/SCDs Patient is discharged to hospice in deteriorating condition. Pt Condition on Discharge: Deteriorating Discharge Disposition: Hospice/Med Facility Discharge Time: <= 30 minutes Discharge Instructions DIET: Follow Instructions for: As Tolerated, No Restrictions Activities you can perform: Regular-No Restrictions Joanna Cottrell MD May 21, 2016 14:58
[2016-05-21] MEDS: SODIUM CHLORIDE 0.9% FLUSH 5 ML FLUSH IV FLUSH SCH (15:01)
[2016-05-21] MEDS: PANTOPRAZOLE SODIUM 40 MG VIAL IV PUSH SCH (15:01)
== END 2016-05-21 17:55 | disposition hospice, home (50) | DRG 687 ==
LOC: NEPE 13:36 → NEDA 16:41 → HIMN 19:50
PROVIDERS: ADMIT Hospitalist; ATTEND Hospitalist
PROC: 02HV33Z Insertion of Infusion Device into Superior Vena Cava, Percutaneous Approach (ICD-10-PCS; principal; 2016-05-16)
PROC: 4A02X4A Measurement of Cardiac Electrical Activity, Guidance, External Approach (ICD-10-PCS; 2016-05-16)
PROC: 30243N1 Transfusion of Nonautologous Red Blood Cells into Central Vein, Percutaneous Approach (ICD-10-PCS; 2016-05-16)
DX: C64.2 Malignant neoplasm of left kidney, except renal pelvis (principal); C78.02 Secondary malignant neoplasm of left lung; R57.9 Shock, unspecified; K92.0 Hematemesis; R64 Cachexia; I11.0 Hypertensive heart disease with heart failure; C78.01 Secondary malignant neoplasm of right lung; E46 Unspecified protein-calorie malnutrition; I50.22 Chronic systolic (congestive) heart failure; I42.9 Cardiomyopathy, unspecified; I47.1 Supraventricular tachycardia; D62 Acute posthemorrhagic anemia; K92.1 Melena; I48.91 Unspecified atrial fibrillation; E87.6 Hypokalemia; Z66 Do not resuscitate; Z87.891 Personal history of nicotine dependence; R62.7 Adult failure to thrive; R31.9 Hematuria, unspecified; Z79.01 Long term (current) use of anticoagulants; E87.5 Hyperkalemia
CPT/HCPCS: 36430; 36556; 70450; 71010; 76937; 80048; 80053; 81001; 82533; 82550; 83605; 83735; 84100; 84484; 85014; 85018; 85025; 85027; 85049; 85610; 85730; 86850; 86900; 86901; 86920; 87086; 87641; 93005; 96360; 96361; C9113; J0153; J0696; J1720; J2270; J2405; J3480; J7030; J7042; J7050; P9016; P9047